=== PATIENT | female | born 1955 | race Caucasian/White ===

== ENCOUNTER 2024-10-23 07:00 | Outpatient (REF) | payer MEDICARE, MEDICAID, SELFPAY ==
--- NOTE | ~2024-10-23 | XR_ITS ---
EXAMINATION: XR KNEE 3 VIEWS RIGHT HISTORY: M25.561 - Pain in right knee COMPARISON: There are no prior studies available for comparison. FINDINGS: Three views of the right knee are submitted. Osseous mineralization is normal. There is no fracture or dislocation. There is mild narrowing of the medial compartment. The soft tissues are unremarkable. There is no significant joint effusion. XR/XR knee RT 3V IMPRESSION: Mild narrowing of the medial compartment. Electronically signed by: Tramaine Arredondo MD 10/24/2024 07:21 AM EDT
== END 2024-10-23 07:01 | disposition home or self-care (01) ==
LOC: HO.HOSX 07:00
PROVIDERS: Visit Provider Orthopaedic Surgery
DX: M25.561 Pain in right knee (principal); S83.241A Other tear of medial meniscus, current injury, right knee, initial encounter
CPT/HCPCS: 73562; 99212

== ENCOUNTER 2024-10-23 14:54 | Outpatient (AMB) | payer MEDICARE, MEDICAID, SELFPAY ==
--- NOTE | 2024-10-23 14:58 | A.OFFVIS_ITS ---
Vital Signs 10/23/24 15:09 Height 5 ft 3 in Weight 165 lb BMI 29.2 Intake Visit Reasons: Right knee pain and giving way Intake Note: Valencia is a 68 year old female who presents with complaints of progressively worsening right knee pain and giving way. The patient describes her pain as sharp in nature. She did twist her knee approximately 6 months ago. She had acute onset of pain. She has been seen by another orthopedic surgeon. Arthroscopic surgery was recommended. She presents here for a 2nd opinion. She has done physical therapy exercises which aggravated her pain. She states that her right knee will give out several times per day. She has failed the last 6 weeks of conservative treatment which has included a home exercise program, Tylenol and anti-inflammatory medicines. 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 Physical Exam Vital Signs: BMI result Body Mass Index 29.2 Const Other: Well-nourished well-developed very friendly female awake alert and oriented x3 in no acute distress Extrem Other: Bilateral lower extremity examination shows good capillary refill, no skin lesions noted, normal sensation light touch Right knee examination shows a minimal effusion, mild crepitus with range of motion, tenderness along her medial joint line, positive Néstor's test, no instability Results Reviewed Results Reviewed: Standing full weight-bearing x-rays of the patient's right knee show mild diffuse joint space narrowing, no acute bony abnormalities MRI of the patient's right knee from [facility] shows mild diffuse degenerative changes as well as a tear of the medial meniscus Assessment & Plan Assessment & Plan (1) Tear of medial meniscus of right knee: Code(s): S83.241A - Other tear of medial meniscus, current injury, right knee, initial encounter Category: Medical Plan Mrs. Narayan presents with progressively worsening right knee pain and mechanical symptoms due to a medial meniscus tear. I had a lengthy discussion with the patient regarding the treatment options. At this point she has failed continued non operative treatments. The risks and benefits of right knee arthroscopic surgery were discussed at length with the patient. The patient wishes to proceed with surgery. Surgery will most likely involve right knee arthroscopic partial medial meniscectomy. The patient does understand that she may not get 100% relief of her symptoms depending on the severity of her degenerative changes. She will be scheduled for next available date. She will follow-up as instructed. Feel free to call me at any time should questions regarding her orthopedic management arise. I spent 22 minutes in reviewing the patient's records and imaging studies, seeing the patient and documenting in the medical record. Orders: Orders XR knee RT 3V 10/23/24 M25.561 - Pain in right knee Medications: New amoxicillin Take four caps (2,000 mg) one hour before any dental work 2,000 mg (4 x 500 mg) PO ONCE 20 caps 2RF Coding Level of Care Code Est Pt Level 3 (95268) Complex EM visit Add On G2211 Diagnoses Tear of medial meniscus of right knee S83.241A
[2024-10-23 15:09] VITALS: BMI 29.2
== END 2024-10-23 15:42 | disposition home or self-care (01) ==
LOC: HO.HOS 14:54
PROVIDERS: PCP Internal Medicine; Visit Provider Orthopaedic Surgery
DX: S83.241A Other tear of medial meniscus, current injury, right knee, initial encounter (principal)
CPT/HCPCS: 99213; G2211

== ENCOUNTER → 2024-10-23 14:58 | Outpatient (BNV) | payer MEDICARE, MEDICAID, SELFPAY | PROVIDERS: Visit Provider Radiology Diagnostic Radiology | DX: M25.561 Pain in right knee (principal) | CPT/HCPCS: 73562 ==

== ENCOUNTER 2024-12-02 05:56 | Day surgery (SDC) | payer MEDICARE, MEDICAID, SELFPAY ==
--- OUTSIDE RECORDS SUMMARY | 2024-11-06 15:16 | XMS_ITS | Clinical Summary ---
Author Organization [facility] Address [address] [place] [address] Phone Care Team Providers Care Master Data Analyst Name Role Phone Betsy Clarke NP Primary Care Provider Allergies Active Allergy Reactions Criticality Noted Date Comments Duloxetine Hcl Nausea And Vomiting 12/07/2017 Levofloxacin Nausea And Vomiting 11/19/2009 Lisinopril 10/10/2019 Meperidine Hives 11/19/2009 Tetracycline 12/07/2017 Medications hydroCHLOROthiaz racquel (HYDRODIURIL) 25 mg tablet Take 1 tablet (25 mg total) by mouth. Active oxyCODONE-acetam inophen (PERCOCET) 5-325 mg per tablet Take 1 tablet by mouth 1 (one) time each day if needed. 12/04/2017 Active rosuvastatin (CRESTOR) 10 mg tablet Take 1 tablet (10 mg total) by mouth 1 (one) time each day. Active losartan (COZAAR) 25 mg tablet Take 1 tablet (25 mg total) by mouth 1 (one) time each day. Active dulaglutide (Trulicity) 1.5 mg/0.5 mL pen injector injection Inject 0.5 mL (1.5 mg total) under the skin every 7 (seven) days. Active magnesium oxide 500 mg magnesium tablet Take by mouth. Active cyanocobalamin (VITAMIN B-12) 1,000 mcg tablet Take 1 tablet (1,000 mcg total) by mouth 1 (one) time each day. Active tiZANidine (ZANAFLEX) 4 mg tablet Take by mouth at bedtime. Active gabapentin (NEURONTIN) 600 mg tablet Take 1 tablet (600 mg total) by mouth 3 (three) times a day. Active Surgical History Surgery Date Site/Laterality Comments GASTRIC BYPASS 2004 PROCEDURE: WI GASTRIC RSTCV W/BYP W/SM INT RCNSTJ LIMIT ABSRPJ HYSTERECTOMY 1979 PROCEDURE: HISTORICAL HYSTERECTOMY BACK SURGERY 2001 PROCEDURE: HISTORICAL BACK SURGERY; COMMENT: SPINAL FUSION CHOLECYSTECTOMY PROCEDURE: WI CHOLECYSTECTOMY JOINT REPLACEMENT Bilateral hip CERVICAL FUSION Medical History Medical History Date Comments HTN (hypertension) Diabetes (CMS/HCC) High cholesterol Family History Medical History Relation Name Comments Asthma Brother Liver disease Brother Lung disease Brother Other cancer Brother Pneumonia Brother Heart attack Father Lung disease Father Stroke Father Coronary artery disease Mother Hypertension Mother Relation Name Status Comments Brother Father Mother Social History Tobacco Use Types Packs/Day Years Used Date Smoking Tobacco: Former Cigarettes Tobacco Cessation:Counseling Given: Not Answered Alcohol Use Standard Drinks/Week Comments Never 0 (1 standard drink = 0.6 oz pur e alcohol) Comments No Sex and Gender Information Value Date Recorded Sex Assigned at Not on file Legal Sex Female 5:31 PM EST Gender Identity Not on file Sexual Orientation Not on file Obstetrics History Last Filed Vital Signs Vital Sign Reading Time Taken Comments Blood Pressure 161/66 06/03/2024 8:54 AM EST Pulse 57 06/03/2024 8:54 AM EST Temperature 36.1 ??C (96.9 ??F) 06/03/2024 8:34 AM ES T Respiratory Rate 19 06/03/2024 8:54 AM EST Oxygen Saturation 97% 06/03/2024 8:54 AM EST Inhaled Oxygen Concentration - - Weight 73.5 kg (162 lb) 06/03/2024 7:37 AM EST Height 160 cm (5' 3 ) 06/03/2024 7:37 AM EST Body Mass Index 28.7 06/03/2024 7:37 AM EST Plan of Treatment Health Maintenance Due Date Last Done Comments Diabetes: Annual GFR (Glomerular Filtration Rate) 1954 Diabetes: Annual Foot Exam 1964 Diabetes: Annual Retina Eye Exam 1964 Zoster Vaccines (1 of 2) 2004 Cholesterol Screening (Lipid Panel) 07/02/2022 Depression Screening 07/02/2022 Hepatitis C Screening 07/02/2022 Medicare Annual Wellness Visit 07/02/2022 Osteoporosis Screening (Bone Density Screening) 07/02/2022 Social Influencers of Health Screening 07/02/2022 COVID-19 Vaccine (3 - season) 2024 10/22/2020, 10/01/2020 Influenza Vaccine (#1) 2024 2, 05/11/2021, 05/05/2020, Additional history exists Diabetes: Annual Urine Albumin-Creatinine Ratio (uACR) 06/03/2024 Diabetes: Blood Sugar Control Test (HGBA1C) 06/03/2024 Hypertension/CHF/CAD Annual BMP Blood Test 06/03/2024 Breast Cancer Screening 12/01/2024 12/02/19, 08/31/2021, 08/09/2018 Pneumococcal Vaccine: 50+ Years (3 of 3 - PCV20 or PCV21) 05/05/2025 05/05/2020, 04/12/2013 Falls Risk Assessment 06/03/2025 06/03/2024 RSV Immunization Adult Patients (1 - 1-dose 75+ series) 2029 DTaP,Tdap,and Td Vaccines (4 - Td or Tdap) 10/03/2033 10/04/2023, 12/09/2012, 04/26/2000 Colorectal Cancer Screening: Colonoscopy 06/03/2034 06/03/2024 HIB Vaccines Aged Out No longer eligi ble based on patient's age to complete this topic HPV Vaccines Aged Out No longer eligi ble based on patient's age to complete this topic Hepatitis A Vaccines Aged Out No long er eligible based on patient's age to complete this topic Hepatitis B Vaccines Aged Out No long er eligible based on patient's age to complete this topic IPV Vaccines Aged Out No longer eligi ble based on patient's age to complete this topic MMR Vaccines Aged Out No longer eligi ble based on patient's age to complete this topic Meningococcal ACWY Vaccine Aged Out N o longer eligible based on patient's age to complete this topic Meningococcal B Vaccine Aged Out No l onger eligible based on patient's age to complete this topic RSV Immunization Patients Under 20 months Aged Out No longer eligible based on patient's age to complete this topic Varicella Vaccines Aged Out No longer eligible based on patient's age to complete this topic Medical Devices Implanted Type Area Deputy Administrator Device Identifier Shelf Expiration Date Model / Serial / Lot Joints Hip Joints Hip Bilatera l: Hip Description:Bilateral hip re placements Procedures Procedure Name Priority Date/Time Associated Diagnosis Comments COLONOSCOPY Routine 06/03/2024 8:33 AM EST Personal history of colon polyps, unspecified NORA SCREENING DIGITAL Routine 12/01/2022 11:31 AM EDT Encounter for screening mammogram for malignant neoplasm of breast from Last 3 Months or Most Recently Relevant to Health Maintenance Results * COLONOSCOPY Anesthesia - MAC; [facility] ENDOSCOPY (06/03/2024 8:33 AM EST) Anatomical Region Laterality Modality Endoscopy 06/03/2024 7:54 AM EST Narrative 06/03/2024 8:32 AM EST [facility] GI Patient Name: Valencia Mart ?Procedure Date: 06/03/2024 7:54 AM ? Date of : 1955 ?Age: 68 Room: ROOM 17 ? Gender: Female Note Status: Finalized ?Attending MD: Hayes Fernandez MD, Procedure Date No Time: 06/03/2024 ? Procedure: ? Colonoscopy Indications: ? High risk colon cancer surveillance: Personal history ? of colonic polyps Providers: ? Hayes Fernandez MD Referring MD: ?Hayes Fernandez MD Medicines: ? Monitored Anesthesia Care Complications: ? No immediate complications. Estimated Blood Loss: ? Estimated blood loss: none. Procedure: ? Pre-Anesthesia Assessment: ? - ASA Grade Assessment: II - A patient with mild ? systemic disease. ? - After reviewing the risks and benefits, the patient ? was deemed in satisfactory condition to undergo the ? procedure. ? After I obtained informed consent, the scope was ? passed under direct vision. Throughout the procedure, ? the patient's blood pressure, pulse, and oxygen ? saturations were monitored continuously.The Olympus ? Pediatric Colonoscope was introduced through the anus ? and advanced to the cecum, identified by appendiceal ? orifice and ileocecal valve. The colonoscopy was ? performed without difficulty. The patient tolerated ? the procedure well. The quality of the bowel ? preparation was good. Findings: ?A 9 mm polyp was found at 50 cm proximal to the anus. ? The polyp was sessile. The polyp was removed with a ? hot snare. Resection and retrieval were complete. ? Estimated blood loss was minimal. ? Multiple small-mouthed diverticula were found in the ? sigmoid colon. ? Non-bleeding internal hemorrhoids were found during ? retroflexion. The hemorrhoids were small. ? The exam was otherwise without abnormality on direct ? and retroflexion views. Impression: ?- One 9 mm polyp at 50 cm proximal to the anus, ? removed with a hot snare. Resected and retrieved. ? - Diverticulosis in the sigmoid colon. ? - Non-bleeding internal hemorrhoids. ? - The examination was otherwise normal on direct and ? retroflexion views. Recommendation: ?- Perform an upper GI endoscopy today. ? - Await pathology results. ? - Repeat colonoscopy for surveillance based on ? pathology results. Hayes Fernandez MD Hayes Fernandez MD 06/03/2024 8:32:25 AM This report has been signed electronically.Hayes Fernandez MD Number of Addenda: 0 Note Initiated On: 06/03/2024 7:54 AM Scope In: Scope Out: ? Endoscopy Department at [facility] - [address] [place] [address], ? [place] [id number] Procedure Note Hayes Fernandez MD - 06/03/2024 [facility] GI Patient Name: Valencia Mart Procedure Date: 06/03/2024 7:54 AM Date of : 1955 Age: 68 Room: ROOM 17 Gender: Female Note Status: Finalized Attending MD: Hayes Fernandez MD, Procedure Date No Time: 06/03/2024 Procedure: Colonoscopy Indications: High risk colon cancer surveillance: Personalhistory of colonic polyps Providers: Hayes Fernandez MD Referring MD: Hayes Fernandez MD Medicines: Monitored Anesthesia Care Complications: No immediate complications. Estimated Blood Loss: Estimated blood loss: none. Procedure: Pre-Anesthesia Assessment: - ASA Grade Assessment: II - A patient with mild systemic disease. - After reviewing the risks and benefits, thepatient was deemed in satisfactory condition to undergo the procedure. After I obtained informed consent, the scope was passed under direct vision. Throughout theprocedure, the patient's blood pressure, pulse, and oxygen saturations were monitored continuously.The Olympus Pediatric Colonoscope was introduced through theanus and advanced to the cecum, identified byappendiceal orifice and ileocecal valve. The colonoscopy was performed without difficulty. The patient tolerated the procedure well. The quality of the bowel preparation was good. Findings: A 9 mm polyp was found at 50 cm proximal to theanus. The polyp was sessile. The polyp was removed with a hot snare. Resection and retrieval were complete. Estimated blood loss was minimal. Multiple small-mouthed diverticula were found inthe sigmoid colon. Non-bleeding internal hemorrhoids were found during retroflexion. The hemorrhoids were small. The exam was otherwise without abnormality ondirect and retroflexion views. Impression: - One 9 mm polyp at 50 cm proximal to the anus, removed with a hot snare. Resected and retrieved. - Diverticulosis in the sigmoid colon. - Non-bleeding internal hemorrhoids. - The examination was otherwise normal on directand retroflexion views. Recommendation: - Perform an upper GI endoscopy today. - Await pathology results. - Repeat colonoscopy for surveillance based on pathology results. Hayes Fernandez MD Hayes Fernandez MD 06/03/2024 8:32:25 AM This report has been signed electronically.Hayes Fernandez MD Number of Addenda: 0 Note Initiated On: 06/03/2024 7:54 AM Scope In: Scope Out: Endoscopy Department at [facility] - [address] [place] [id number] us Hayes Fernandez MD GI~PROCEDURE ORDERABLES Final Result * NORA SCREENING DIGITAL (12/01/2022 11:31 AM EDT) Anatomical Region Laterality Modality Mammography 12/01/2022 8:54 AM EDT Narrative 12/01/2022 11:31 AM EDT [facility] Diagnostic Imaging Department [address] [place] [address] [id number] Patient: ??DYLANDOMONIQUEVALENCIA Nabil ?/Age/Sex: 1955 - 66 - F Unit#: ??[id number] ? Location/Status: ??SPDIMAM/REG CLI ? Mnemonic/Ordering Site: ??DIGSC/SPMAM Ordering Physician: ??ERICA LAGOS MD Nora Screening Digital - 12/01/22920 EXAM: Nora Screening Digital EXAM DATE AND TIME: 12/01/2022 9:21 AM HISTORY: ??Screening. Personal history of colon carcinoma. Reduction mammoplasty in 1998. COMPARISON: ??08/31/21, 03/18/19, 08/09/18, 05/08/17, 04/20/15 TECHNIQUE: CC and MLO views of both breasts were obtained using full field digital mammography. Bilateral digital breast tomosynthesis was performed in the MLO projection. Computer aided detection with vufind 7.2-H and Hydrobee 3D 3.1 was employed. TISSUE DENSITY: b. There are scattered areas of fibroglandular density. FINDINGS: Reduction mammoplasty sequelae are again noted. No suspicious masses, grouped microcalcifications, or areas of architectural distortion are seen. Benign- appearing microcalcifications are again seen bilaterally, unchanged. Vascular calcification is present. The skin is unremarkable. IMPRESSION: Stable mammographic appearance of the breasts. ??No evidence of malignancy is seen. A negative mammogram in the presence of a clinically suspicious palpable abnormality does not preclude the possibility of malignancy or alter the indications for biopsy. BI-RADS: ??Category 2: Benign RECOMMENDATION(S): 1: Routine screening mammogram BILATERAL in 1 year. [address]164, 47593 3342F, 7025F Dictating Physician: ??MANISHA WALLIS MD Electronically Signed by: ??MANISHA WALLIS MD Dic Date/Time: ??12/01/22 1129 Sign date/Time: ??12/01/22 1131 Procedure Note Manisha Wallis MD - 09/01/2023 [facility] Diagnostic Imaging Department [address] [place] [id number] Patient: VALENCIA MART D.O.B./Age/Sex: 1955 - 66 - F Unit#: [id number] Location/Status: SPDIMAM/REG CLI Mnemonic/Ordering Site: DIGCT/[facility] Ordering Physician: ERICA LAGOS MD [facility] Screening Digital - 12/01/22 - 920 EXAM: Nora Screening Digital EXAM DATE AND TIME: 12/01/2022 9:21 AM HISTORY: Screening. Personal history of colon carcinoma. Reductionmammoplasty in 1998. COMPARISON: 08/31/21, 03/18/19, 08/09/18, 05/08/17, 04/20/15 TECHNIQUE: CC and MLO views of both breasts were obtained using fullfield digital mammography. Bilateral digital breast tomosynthesis was performedin the MLO projection. Computer aided detection with vufind 7.2-H andHydrobee 3D 3.1 was employed. TISSUE DENSITY: b. There are scattered areas of fibroglandular density. FINDINGS: Reduction mammoplasty sequelae are again noted. No suspicious masses,grouped microcalcifications, or areas of architectural distortion are seen.Benign- appearing microcalcifications are again seen bilaterally, unchanged. Vascular calcification is present. The skin is unremarkable. IMPRESSION: Stable mammographic appearance of the breasts. No evidence of malignancyis seen. A negative mammogram in the presence of a clinically suspicious palpable abnormality does not preclude the possibility of malignancy or alter the indications for biopsy. BI-RADS: Category 2: Benign RECOMMENDATION(S): 1: Routine screening mammogram BILATERAL in 1 year. 59991, 06758 3342F, 7025F Dictating Physician: MANISHA WALLIS MD Electronically Signed by: MANISHA WALLIS MD Dic Date/Time: 12/01/22 1129 Sign date/Time: 12/01/22 1131 us Erica Lagos MD IMG BI PROCEDURES Final Result from Last 3 Months or Most Recently Relevant to Health Maintenance Insurance MEDICARE [place]ICAID - [place] Advance Directives Documents on File Type Date Recorded Patient Dog Catcher Expl anation Health Care Decision (hx) 04/09/2013 AD BALLARD DIRECTIVE Health Care Decision (hx) 04/09/2013 AD BALLARD DIRECTIVE Health Care Decision (hx) 04/09/2013 AD BALLARD DIRECTIVE Health Care Decision (hx) 04/09/2013 AD BALLARD DIRECTIVE Health Care Decision (hx) 04/09/2013 AD BALLARD DIRECTIVE Health Care Decision (hx) 04/09/2013 AD BALLARD DIRECTIVE Health Care Decision (hx) 04/09/2013 AD BALLARD DIRECTIVE Health Care Decision (hx) 04/09/2013 AD BALLARD DIRECTIVE Health Care Decision (hx) 04/09/2013 AD BALLARD DIRECTIVE Health Care Decision (hx) 04/09/2013 AD BALLARD DIRECTIVE Care Teams Master Data Analyst Relationship Specialty Start Date End Date Betsy Clarke NP [address] [place] [address] PCP - General Internal Medicine 05/30/22
--- OUTSIDE RECORDS SUMMARY | 2024-11-06 15:17 | XMS_ITS | Clinical Summary ---
Author Organization [facility] Address [address] [place] [address] Care Team Providers Care Line Pilot Name Role Phone Betsy Clarke NP Primary Care Provider [phone] Allergies Active Allergy Reactions Criticality Noted Date Comments Duloxetine Hcl 12/07/2017 Meperidine 12/07/2017 Lisinopril 10/10/2019 Tetracycline 12/07/2017 Medications Medication Sig Dispensed Refills Start Date End Date Status fluticasone (FLONASE) 50 MCG/ACT nasal spray 0 11/24/2017 Activ e oxyCODONE-acetamino phen (PERCOCET) 5-325 MG per tablet Take 1 tablet by mouth daily as needed. for pain 0 12/04/2017 Active tiZANidine (ZANAFLEX) 4 MG tablet Take 4 mg by mouth daily. 0 Active amLODIPine (NORVASC) tablet 2.5 mg Take 2.5 mg by mouth daily. 0 Active hydroCHLOROthiazide (HYDRODIURIL) tablet 25 mg Take 25 mg by mouth daily. 0 Active Multiple Vitamins-Minerals (MULTIVITAMIN GUMMIES ADULT PO) Take by mouth daily. 0 Active B Complex Vitamins (VITAMIN B COMPLEX PO) Take by mouth daily. 0 Active Magnesium Oxide 400 (241.3 Mg) MG TABS tablet Take 400 mg by mouth daily. 0 Active Cholecalciferol (VITAMIN D3) 50 MCG (2000 UT) capsule Take 2,000 Units by mouth daily. 0 Active gabapentin (NEURONTIN) 300 MG capsule Take 300 mg by mouth 3 (three) times a day. 0 Active amoxicillin (AMOXIL) 500 MG tablet Take 4 tabs 1 hour prior to dental appointment, colonoscopy or surgical procedure 20 tablet 3 11/12/2021 Active Active Problems No known active problems Family History Medical History Relation Name Comments Cancer Brother Heart disease Father Diabetes Mother Heart disease Mother Hypertension Mother Relation Name Status Comments Brother Father Mother Social History Tobacco Use Types Packs/Day Years Used Date Smoking Tobacco: Never Assessed Sex and Gender Information Value Date Recorded Sex Assigned at Not on file Gender Identity Not on file Sexual Orientation Not on file Job Start Date Occupation Industry Not on file Not on file Not on file Last Filed Vital Signs Vital Sign Reading Time Taken Comments Blood Pressure 131/73 06/03/2020 2:04 PM EST Pulse 64 06/03/2020 2:04 PM EST Temperature 36.4 ??C (97.5 ??F) 06/03/2020 2:04 PM ES T Respiratory Rate - - Oxygen Saturation - - Inhaled Oxygen Concentration - - Weight 81.8 kg (180 lb 6.4 oz) 06/03/2020 2:04 P M EST Height 160 cm (5' 3 ) 06/03/2020 2:04 PM EST Body Mass Index 31.96 06/03/2020 2:04 PM EST Plan of Treatment Health Maintenance Due Date Last Done Comments Hepatitis C Screening 1955 COVID-19 Vaccine (#1) [birth year]17[birth year]1955 Depression Screening 1966 BMI Counseling 1972 Preventative Health Evaluation 1972 DTap / Tdap / Td (1 - Tdap) 1973 Colon Cancer Screening (Colonoscopy) 12/16/1999 Breast Cancer Screening (Mammogram) 2004 Shingrix-Zoster Vaccine (1 of 2) 2004 Fall Risk Assessment 12/16/2019 Osteoporosis Screening (DEXA Scan) 12/16/2019 Pneumococcal Vaccine (1 of 1 - PCV) 12/16/2019 Influenza Vaccine (#1) 2024 RSV Adult > 60+ Yrs or Pregn ant (1 - 1-dose 75+ series) 2029 Hepatitis B Vaccines Aged Out No long er eligible based on patient's age to complete this topic RSV Ped < 20 months Aged Out No longe r eligible based on patient's age to complete this topic Care Teams Line Pilot Relationship Specialty Start Date End Date Betsy Clarke NP [address] [place] [address] PCP - General Gerontology 10/10/19
[2024-11-27 12:18] VITALS: BMI 29.2
--- NOTE | 2024-11-28 12:46 | HO.ANESPROP2 ---
Documented by User: Becca Leal NP 11/28/24 12:47 HPI - Anesthesia Eval Consult details Narrative: 68yo F for Right Knee Arthroscopy partial medial meniscectomy Anesthesia Pre-Procedure Meds Is the patient on any of the following meds?: GLP1/DPP4 PMFSH Active Problems Active Problems: All Active Problems Tear of medial meniscus of right knee (Acute) Right knee pain (Acute) Past Medical History Medical History (Updated 12/02/24 @ 06:45 by Eve Pope RN) Diabetes GERD (gastroesophageal reflux disease) Adnexal mass Aortic valve calcification Arthralgia Chronic cervical radiculopathy Migraine Cough Depression Diverticulitis Fibromyalgia Hiatal hernia Hypercholesteremia HTN (hypertension) Anemia Back pain Osteoarthritis Surgical History Surgical History (Updated 12/02/24 @ 06:13 by Eve Pope RN) Hx of laminectomy Hx of fusion of cervical spine Hx of hysterectomy Hx of breast reduction, elective Hx of bariatric surgery Hx of total hip arthroplasty History of esophagogastroduodenoscopy (EGD) H/O colonoscopy Social History Social History Alcohol intake: current Alcohol intake frequency: holidays/special occasions only Patient Tobacco Use Status: Former Tobacco user Use of substances other than those prescribed or required for medical reasons: No Are you DNR?: No Advance Directives: No Advance Directives Information Provided: Yes Current occupational status: employed 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 Meds Allergies Allergy/AdvReac Type Severity Reaction Status Date / Time meperidine [From DEMEROL] Allergy Unknown HIVES Verified 12/02/24 06:13 tetracycline [TETRACYCLINE] Allergy Unknown GASTRITIS Verified 12/02/24 06:13 duloxetine [From Cymbalta] Allergy Unknown Verified 12/02/24 06:13 irbesartan Allergy Headache Verified 12/02/24 06:13 levofloxacin [From Levaquin] Allergy Unknown Verified 12/02/24 06:13 lisinopril Allergy Cough Verified 12/02/24 06:13 Tetracyclines Allergy Unknown Verified 12/02/24 06:13 Active Medications: Current Medications Cefazolin Sodium/Dextrose (Ancef) 2 gm in 50 mls @ 100 mls/hr IV PREOP ONE Stop: 12/02/24 06:02 Home Medications ?Medication ?Instructions ?Recorded ?Confirmed ?Last Taken ?Type amitriptyline 10 mg tablet 10 - 20 mg PO BEDTIME 11/27/24 12/02/24 Unknown History cholecalciferol (vitamin D3) 25 50 mcg PO DAILY 11/27/24 12/02/24 Unknown History mcg (1,000 unit) capsule (Vitamin D3) cyanocobalamin (vitamin B-12) 50 50 mcg PO DAILY 11/27/24 12/02/24 Unknown History mcg tablet (Vitamin B-12) dulaglutide 0.75 mg/0.5 mL 0.75 mg subcut QWEEK 11/27/24 12/02/24 11/16/24 History subcutaneous pen injector (Trulicity) gabapentin 300 mg capsule 300 mg PO TID 11/27/24 12/02/24 12/02/24 05:00 History hydrochlorothiazide 25 mg tablet 25 mg PO DAILY 11/27/24 12/02/24 Unknown History ipratropium bromide 17 2 puff inhalation QID 11/27/24 12/02/24 Unknown History mcg/actuation HFA aerosol inhaler (Atrovent HFA) losartan 25 mg tablet 25 mg PO DAILY 11/27/24 12/02/24 Unknown History magnesium 200 mg tablet 400 mg PO DAILY 11/27/24 12/02/24 Unknown History multivitamin 1 tab PO DAILY 11/27/24 12/02/24 Unknown History oxycodone 5 mg tablet 5 mg PO QID PRN Pain 11/27/24 12/02/24 12/02/24 05:00 History rosuvastatin 10 mg tablet 10 mg PO DAILY 11/27/24 12/02/24 Unknown History tizanidine 4 mg capsule 8 mg PO BEDTIME PRN Muscle Spasm 11/27/24 12/02/24 Unknown History fluticasone propionate 50 1 spray intranasal DAILY 12/02/24 12/02/24 Unknown History mcg/actuation nasal spray,suspension Exam Height,Weight and Vital Signs: Height 5 ft 3 in Weight 74.843 kg Assessment and Plan Assessment Anesthesia Assessment: Chart Reviewed Documented by User: Sakina Murguia MD 12/02/24 08:00 [facility] Past Medical History Medical History (Updated 12/02/24 @ 06:45 by Eve Pope, RN) Diabetes GERD (gastroesophageal reflux disease) Adnexal mass Aortic valve calcification Arthralgia Chronic cervical radiculopathy Migraine Cough Depression Diverticulitis Fibromyalgia Hiatal hernia Hypercholesteremia HTN (hypertension) Anemia Back pain Osteoarthritis Family History Family history of problems with anesthesia: No Surgical History Surgical History (Updated 12/02/24 @ 06:13 by Eve Pope, RN) Hx of laminectomy Hx of fusion of cervical spine Hx of hysterectomy Hx of breast reduction, elective Hx of bariatric surgery Hx of total hip arthroplasty History of esophagogastroduodenoscopy (EGD) H/O colonoscopy History of Problems with Anesthesia: No Social History Social History Alcohol intake: current Alcohol intake frequency: holidays/special occasions only Patient Tobacco Use Status: Former Tobacco user Use of substances other than those prescribed or required for medical reasons: No Are you DNR?: No Advance Directives: No Advance Directives Information Provided: Yes Current occupational status: employed 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 Meds Allergies Allergy/AdvReac Type Severity Reaction Status Date / Time meperidine [From DEMEROL] Allergy Unknown HIVES Verified 12/02/24 06:13 tetracycline [TETRACYCLINE] Allergy Unknown GASTRITIS Verified 12/02/24 06:13 duloxetine [From Cymbalta] Allergy Unknown Verified 12/02/24 06:13 irbesartan Allergy Headache Verified 12/02/24 06:13 levofloxacin [From Levaquin] Allergy Unknown Verified 12/02/24 06:13 lisinopril Allergy Cough Verified 12/02/24 06:13 Tetracyclines Allergy Unknown Verified 12/02/24 06:13 Home Medications ?Medication ?Instructions ?Recorded ?Confirmed ?Last Taken ?Type amitriptyline 10 mg tablet 10 - 20 mg PO BEDTIME 11/27/24 12/02/24 Unknown History cholecalciferol (vitamin D3) 25 50 mcg PO DAILY 11/27/24 12/02/24 Unknown History mcg (1,000 unit) capsule (Vitamin D3) cyanocobalamin (vitamin B-12) 50 50 mcg PO DAILY 11/27/24 12/02/24 Unknown History mcg tablet (Vitamin B-12) dulaglutide 0.75 mg/0.5 mL 0.75 mg subcut QWEEK 11/27/24 12/02/24 11/16/24 History subcutaneous pen injector (Trulicity) gabapentin 300 mg capsule 300 mg PO TID 11/27/24 12/02/24 12/02/24 05:00 History hydrochlorothiazide 25 mg tablet 25 mg PO DAILY 11/27/24 12/02/24 Unknown History ipratropium bromide 17 2 puff inhalation QID 11/27/24 12/02/24 Unknown History mcg/actuation HFA aerosol inhaler (Atrovent HFA) losartan 25 mg tablet 25 mg PO DAILY 11/27/24 12/02/24 Unknown History magnesium 200 mg tablet 400 mg PO DAILY 11/27/24 12/02/24 Unknown History multivitamin 1 tab PO DAILY 11/27/24 12/02/24 Unknown History oxycodone 5 mg tablet 5 mg PO QID PRN Pain 11/27/24 12/02/24 12/02/24 05:00 History rosuvastatin 10 mg tablet 10 mg PO DAILY 11/27/24 12/02/24 Unknown History tizanidine 4 mg capsule 8 mg PO BEDTIME PRN Muscle Spasm 11/27/24 12/02/24 Unknown History fluticasone propionate 50 1 spray intranasal DAILY 12/02/24 12/02/24 Unknown History mcg/actuation nasal spray,suspension Exam Airway Mallampati Class: II TM Dist: >3cm Neck ROM: Full Loose/Missing/Broken Teeth: Yes and Upper Assessment and Plan Assessment Anesthesia Assessment: Anesthesia Plan Discussed Final Anesthetic Review Family History of Problems with Anesthesia: No History of Problems with Anesthesia: No NPO: Yes ASA Class: II Final Preanesthetic Review: No Changes in Pt Med Stat, Meds/Allgs Chart Reviewed, Consent Obtained/Reviewed and Anes Risks/Benef Reviewed Patient Risk: Intermediate Procedure Risk: Low Anesthetic Plan Anesthetic Plan: GA Disposition: Standard PACU
[2024-12-02] VITALS (10 sets, daily range): BP systolic 134–171; BP diastolic 62–75; PULSE 60–79; RESP 14–16; TEMP 36.2–36.6; O2SAT 93–100; BMI 29.1
[2024-12-02] MEDS: Lactated Ringers 1,000 ML 100 ML IVCONT (06:41)
[2024-12-02 06:50] LABS: Glucose, Whole Blood 140 mg/dL (60-115)
[2024-12-02] MEDS: ceFAZolin Sodium/Dextrose,Iso 2 GM/50 ML PIGGYBACK IV (08:40)
[2024-12-02] MEDS: Acetaminophen 1,000 MG/100 ML PIGGYBACK 400 MG IV (08:50)
--- NOTE | 2024-12-02 09:34 | PM.OP ---
Brief Operative Note Date of Service: 12/02/24 Pre-op diagnosis: Right knee medial meniscus tear, right knee degenerative joint disease Post-op diagnosis: same Procedure: Right knee arthroscopic partial medial meniscectomy, right knee arthroscopic chondroplasty of the undersurface of the patella as well as the medial femoral condyle Implants: none Surgeon: Jerry Wiggins MD Anesthesia: GLMA Was an Demolition Expert used for this Procedure?: No Estimated blood loss (mL): 10 Pathology: none sent Condition: stable Disposition: PACU
--- NOTE | 2024-12-02 09:35 | P.OP_ITS ---
Operative Note Operative Note Date of Service: 12/02/24 Narrative: After the patient was identified as Valencia Narayan and her right knee was initialed by myself they were brought to the operating room where general anesthesia was induced by the anesthesiologist in routine fashion. The patient was given 2 g of IV Ancef for infection prophylaxis. A formal time-out was completed. The patient's right lower extremity was prepped and draped in sterile fashion. Marcaine with epinephrine was injected into the planned incision sites as well as their right knee joint. A # 11 scalpel blade was used to make an anterolateral portal 1 cm proximal to the joint line and 1 cm lateral to the patellar tendon. Blunt trocar technique was used into the suprapatellar pouch with the knee in extension. Diagnostic arthroscopy showed multiple bands of thickened plica which would be excised at the end of the procedure. There were no loose bodies or abnormalities found in either the medial or lateral gutters. There were diffuse grades 1 and 2 degenerative changes of the undersurface of the patella as well as grade 1 degenerative changes of the trochlear groove. The patient's knee was flexed to 45 degrees and a valgus force was placed upon it. The medial compartment was entered. An anteromedial portal was made 1 cm proximal to the joint line and 1 cm medial to the patellar tendon. Probing of the medial meniscus showed a radial tear of the posterior horn. A partial medial meniscectomy was performed using the arthroscopic shaver. Following the partial meniscectomy the remainder of the meniscus tissue was stable. There were diffuse grades 1 and 2 degenerative changes of the med ial femoral condyle as well as diffuse grade 1 degenerative changes of the medial tibial plateau. The articular surface of the medial femoral condyle was made smooth using the arthroscopic shaver. The articular surface of the medial tibial plateau was already smooth so no chondroplasty was indicated. The patient's knee was then placed into a neutral position. There was no injury to the anterior cruciate ligament. The patient's knee was then placed into the figure of 4 position and the lateral compartment was entered. There were minimal degenerative changes of the lateral femoral condyle and lateral tibial plateau. There was no evidence of lateral meniscus tearing. The patient's knee was once again brought into extension and the suprapatellar pouch was entered. The arthroscopic shaver and the ArthroCare Wand were used to excise the thickened bands of plica. The undersurface of the patella was then made smooth using the arthroscopic shaver. The articular surface of the trochlear groove was already smooth so no chondroplasty was indicated. The knee joint was irrigated and then drained. All arthroscopic instruments were removed. The 2 portals were closed with 3-0 nylon interrupted suture. The knee joint was injected with Marcaine. Dry sterile dressing and Fernando bandages were placed over the patient's knee. The patient was awoken and extubated in the operating room. They were transferred to the recovery room in stable condition.
[2024-12-02] MEDS: Ketorolac Tromethamine 15 MG/ML VIAL IVPUSH (09:42)
[2024-12-02] MEDS: fentaNYL citrate/PF 100 MCG/2 ML VIAL 50 MCG IVPUSH ×2 (09:44→09:54)
[2024-12-02] MEDS: cefTRIAXone sodium 1 GM VIAL IVPUSH (09:45)
[2024-12-02] MEDS: oxyCODONE HCl Immed Release 5 MG TABLET PO (10:10)
== END 2024-12-02 10:53 | disposition home or self-care (01) ==
PROVIDERS: PCP Family Medicine; Visit Provider Orthopaedic Surgery
PROC: (CPT 29870; principal; 2024-12-02 08:30)
DX: S83.241A Other tear of medial meniscus, current injury, right knee, initial encounter (principal); M17.11 Unilateral primary osteoarthritis, right knee; M67.51 Plica syndrome, right knee; M25.561 Pain in right knee; M23.51 Chronic instability of knee, right knee; X50.1XXA Overexertion from prolonged static or awkward postures, initial encounter; Y93.9 Activity, unspecified; Y92.9 Unspecified place or not applicable; Y99.9 Unspecified external cause status; K21.9 Gastro-esophageal reflux disease without esophagitis; D64.9 Anemia, unspecified; E78.00 Pure hypercholesterolemia, unspecified; E11.9 Type 2 diabetes mellitus without complications; M79.7 Fibromyalgia; Z79.51 Long term (current) use of inhaled steroids; Z79.899 Other long term (current) drug therapy; Z79.85 Long-term (current) use of injectable non-insulin antidiabetic drugs; Z88.1 Allergy status to other antibiotic agents; Z88.5 Allergy status to narcotic agent; Z88.8 Allergy status to other drugs, medicaments and biological substances; Z98.890 Other specified postprocedural states; Z87.891 Personal history of nicotine dependence
CPT/HCPCS: 29881; 82947; J0131; J0171; J0690; J0696; J1100; J1885; J2003; J2250; J2405; J2704; J2795; J3010

== ENCOUNTER → 2024-12-02 05:56 | Outpatient (BNV) | payer MEDICARE, MEDICAID, SELFPAY | PROVIDERS: PCP Family Medicine; Visit Provider Orthopaedic Surgery | DX: S83.241A Other tear of medial meniscus, current injury, right knee, initial encounter (principal) | CPT/HCPCS: 29881 ==

== ENCOUNTER 2024-12-17 08:59 | Outpatient (AMB) | payer MEDICARE, MEDICAID, SELFPAY ==
--- NOTE | 2024-12-17 09:02 | A.OFFVIS_ITS ---
Vital Signs 12/17/24 09:03 Height 5 ft 3 in Weight 164 lb BMI 29.0 Intake Visit Reasons: PO RT knee 12/02/24 DR Intake Note: Valencia is a 68 year old female who presents today post-operatively after undergoing a right knee arthroscopy on 12/02/24. Patient reports she is doing great and feels much better than she did. Patient is very thankful she had the procedure done. Sutures removed in office and steri-strips applied. Allergies meperidine [From DEMEROL] Allergy (Unknown, Verified 12/17/24 09:10) HIVES tetracycline [TETRACYCLINE] Allergy (Unknown, Verified 12/17/24 09:10) GASTRITIS duloxetine [From Cymbalta] Allergy (Verified 12/17/24 09:10) Unknown irbesartan Allergy (Verified 12/17/24 09:10) Headache levofloxacin [From Levaquin] Allergy (Verified 12/17/24 09:10) Unknown lisinopril Allergy (Verified 12/17/24 09:10) Cough Tetracyclines Allergy (Verified 12/17/24 09:10) Unknown Medication List - Last Reconciled 12/17/24 by Jerry Wiggins MD amitriptyline 10 - 20 mg PO BEDTIME amoxicillin 2,000 mg (4 x 500 mg) PO ONCE cholecalciferol (vitamin D3) (Vitamin D3) 50 mcg PO DAILY cyanocobalamin (vitamin B-12) (Vitamin B-12) 50 mcg PO DAILY dulaglutide (Trulicity) 0.75 mg subcut QWEEK fluticasone propionate 50 mcg/actuation 1 spray intranasal DAILY gabapentin 300 mg PO TID hydrochlorothiazide 25 mg PO DAILY ipratropium bromide 17 mcg/actuation (Atrovent HFA) 2 puffs inhalation QID losartan 25 mg PO DAILY magnesium 400 mg PO DAILY multivitamin 1 tab PO DAILY oxycodone 5 mg PO QID PRN oxycodone 5 mg PO Q6H PRN rosuvastatin 10 mg PO DAILY tizanidine 8 mg PO BEDTIME PRN PFSH Medical History (Updated 12/02/24 @ 06:45 by Eve Pope RN) Diabetes GERD (gastroesophageal reflux disease) Adnexal mass Aortic valve calcification Arthralgia Chronic cervical radiculopathy Migraine Cough Depression Diverticulitis Fibromyalgia Hiatal hernia Hypercholesteremia HTN (hypertension) Anemia Back pain Osteoarthritis Surgical History (Updated 12/02/24 @ 06:13 by Eve Pope RN) Hx of laminectomy Hx of fusion of cervical spine Hx of hysterectomy Hx of breast reduction, elective Hx of bariatric surgery Hx of total hip arthroplasty History of esophagogastroduodenoscopy (EGD) H/O colonoscopy Social History Alcohol intake: current Alcohol intake frequency: holidays/special occasions only Patient Tobacco Use Status: Former Tobacco user Current occupational status: employed 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 Narayan is doing well after undergoing right knee arthroscopic surgery on 12/02/2024. She will gradually progress to activities as tolerated. She will contact me prior to her follow-up appointment in 3 months should any questions or concerns arise. Coding Level of Care Code Global (69743) Diagnoses Right knee pain M25.561
[2024-12-17 09:03] VITALS: BMI 29.0
--- OUTSIDE RECORDS SUMMARY | 2024-12-17 09:32 | XMS_ITS | Data Portability ---
Author Organization [facility], [facility] Address [address] [place] [address] Care Team Providers Care Guest Experience Manager Name Role Phone ISAIAS ERICA Primary Care Provider Assessment Encounter Date Assessment Date Assessment LastModified by Organization Details LastModified Time 09/26/2024 09/26/2024 I am seeing the patient today under the supervision of giovanny who was available but who did not see the patient. HPI: Patient presents today regarding their R knee sp fall. They have had difficulty up and down stairs sitting standing. Problems ambulating. Tqvj-par-vdaycji medications are helping somewhat but not significantly. Pain is constant aching sometimes sharp pain with giving out sensations. Past family, medical, social history and review of systems has been reviewed, updated and is located in the patient? s chart. Examination: The patient is well appearing and in no apparent distress. Alert and oriented x3. Gait is symmetric. Examination of the Rn knee reveals no evidence of any edema, erythema, or warmth.o] Deformity. Range of motion of the knee limited with mild discomfort at the end ranges. Mild effusion. Does have some tenderness to palpation about the medial hemijoint line. No tenderness to palpation about the lateral hemijoint line. Patellofemoral crepitus is noted. mild lateral ligamentous laxity. Negative Néstor? s . Calf is supple and nontender. Neurovascularly intact distally. 4 X-ray views of the knee were independently reviewed today showed narrowing of the medial compartment of the R knee. With slight osteophyte formation. Narrowing is noted of patellofemoral joint as well. No evidence of any other bony lesions or pathology. Impression: Right knee medial collateral ligament/meniscal injury Plan: We discussed the role of conservative management including medications, physical therapy, injection and bracing. At this point the patient was to proceed with hinged knee brace MRI for evaluation to prepare for surgical planning. Please see procedure note .Patient will continue conservative of systems icing and elevation and xlhs-poc-rqqmxmy medications. They will follow up with us as scheduled. [email or web address] Not available 09/26/2024 11:03:01 12/11/2024 12/11/2024 A/ L trigger thumb, initial diagnosis P/ Left thumb flexor tendon sheath cortisone injections performed. She knows that if this is recurrent after the first injection, second injection can be performed. If recurrent after 2 injections, surgical release would be recommended as has been required for treatment of other trigger fingers. She will follow-up for this problem on an as-needed basis. [email or web address] Not available 12/11/2024 12:20:25 Plan of Treatment Reminders Order Date Submit Date Provider Last Modified By Organization Details Last Modified Time Details Appointments None recorded. Lab None recorded. Referral None recorded. Procedures None recorded. Surgeries None recorded. Imaging XR, knee, 4 or more view - UC 1 right knee 4v 2024 025 [email or web address] [facility], [address], [place], [address], 5 14:07:11 MRI, knee, w/o contrast - mri right knee - eval ? MMI 2024 025 [facility] ([facility]), [address], [place], [address], 5 15:18:13 XR, elbow, 3 or more view - rm 120 3v elbow 2023 024 [email or web address] [facility], [address], [place], [address], 4 10:34:00 Medication Orders None recorded. Patient TargetsNo targets recorded. Patient InstructionsNo instructions recorded. Reason for Referral None Reported. Results Created Date Observation Date Name Description Value Unit Range Abnormal Flag Note LastModifiedBy Organization Detail LastModifiedTime 11/09/19 24 11/08/2023 rhyth m strip , EKG* No observ ation record ed. [email or web address] [facility] - [address], [place], [address], 11/10/2023 13:30:20 05/06/20 24 05/06/2024 XR, elbow , 3 or more view [email or web address] ?Encry pted=s hAaTro YD8dLq bEUv6g %2BXZw aYqtaq 0bqfl% 2Fg9IQ a4ajBk vP9nXo QUaueC m3YtLR FvZlJ JJ8mAn HZtai3 4j5579 AC0Kqa 36HVqq mKiQtr MwF INTERFACE [facility] [address], [place], [address], 05/06/2024 09:22:26 05/06/20 24 05/06/2024 XR, elbow , 3 or more view [email or web address] ?Encry pted=s hAaTro YD8dLq bEUv6g %2BXZw aYqtaq 0bqfl% 2Fg9IQ a4ajBk vP9nXo QUaueC m3YtLR FvZl JJ8mAn HZtai3 9i1045 AC0Kqa 36HVqq mKiQtr MwF INTERFACE [facility] [address] [facility] [address], [place], [address], 05/06/2024 09:22:29 09/26/19 25 09/26/2024 XR, knee, 4 or more view [email or web address] ?Encry pted=s hAaTro YD8dLq bEUv6g %2BXZw aYqtaq 0bqfl% 2Fg9IQ a4ajBk vP9nXo QUaueC m3YtLR FvZlgJ JJ8mAn HZtai3 2d8203 AC0Kqb XmMWae vKiQtr MwF INTERFACE [facility] [address], [place], [address], 09/26/2024 10:56:44 09/26/19 25 09/26/2024 XR, knee, 4 or more view [email or web address] ?Encry pted=s hAaTro YD8dLq bEUv6g %2BXZw aYqtaq 0bqfl% 2Fg9IQ a4ajBk vP9nXo QUaueC m3YtLR FvZlgJ JJ8mAn HZtai3 5w0100 AC0Kqb XmMWae vKiQtr MwF INTERFACE [facility] [address], [place], [address], 09/26/2024 10:56:47 10/03/19 25 10/01/2024 MRI, knee, w/o contr ast [facility] Access ion Number : [id number] Patien t Name: Valencia Comer Record Number : [id number] Date of : 1955 Date of Exam: 2024 Referr ing Physic carl: [facility] [address], [address] [facility], [facility] [address] Exam: MR Knee (C-) CPT 79941 - Right Room Descri ption: [facility] Pion 3T MRI right knee Histor y: Pain Findin gs: 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 Body of the medial menisc us is sublux ed slight ly into the medial gutter . Small margin al osteop hytes in the medial compar tment. Latera l menisc us is intact The ACL and PCL are intact The MCL is intact The LCL comple x includ ing the biceps femori s, poplit eus and fibula r collat eral ligame nts are intact The medial and latera l patell ar retina cula are intact . The extens or mechan ism is intact . Mitchell' s cyst measur es approx imatel y 2.5 cm AP by 5 cm cranio caudal . 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 Body of the medial menisc us is sublux ed slight ly into the medial gutter . Small margin al osteop hytes in the medial compar tment. Mitchell' s cyst. Electr onical ly Signed By: Myrna Clarke MD [email or web address] [facility] ([facility]) [address], [place], [address], 10/02/2024 16:37:14 Result Notes None recorded. Problems Name Problem SNOMED Code Status Onset Date Resolution Date Notes Provider Name and Address Organization Details Recorded Time No complaint s [id number] Active Status: 'I'; Not Available [facility] 4 09:20:23 Idiopathi c osteoarth ritis 977351545 Active 2017 Problem Code: M19.031; Problem Code Type: ICD-10; Status: 'A'; Not Available [facility] 4 11:42:29 Trigger finger of right hand 403759013410 74013 Active 2017 Problem Code: M65.331; Problem Code Type: ICD-10; Status: 'A'; Not Available [facility] 4 11:42:30 Bilateral carpal tunnel syndrome 183290899361 95510 Active 2016 Problem Code: G56.03; Problem Code Type: ICD-10; Status: 'A'; Not Available [facility] 4 11:42:30 Problem Notes None recorded. Procedures Surgical History Date Name Laterality Status Provider Name and Address Organization Details Recorded Time 12/12/19 25 Trigger Finger Kenalog Injection completed Shruti Huerta MD [address], [place], [address], [facility] 12/11/2024 11:30:10 05/06/20 24 Lateral Epicondylitis Celestone 1cc Injection, L/R completed Joie Lopez PA-C [address], [place], [address], [facility] 05/06/2024 10:07:11 05/06/20 24 Medial Epicondylitis Celestone 1cc Injection, L/R completed Joie Lopez PA-C [address] [facility], [place], [address], [place] - [facility] 05/06/2024 10:07:03 Imaging Results Imaging Date Name Status LastModified by Organiz ation Details LastModified Time 11/08/2023 rhythm strip, EKG* completed [email or web address] [facility] - [address], [address], 11/10/2023 13:30:20 05/06/2024 XR, elbow, 3 or more view completed [facility] [address], [place], [address], 05/06/2024 09:22:26 05/06/2024 XR, elbow, 3 or more view completed [facility] [address] [facility], [place], [address], 05/06/2024 09:22:29 09/26/2024 XR, knee, 4 or more view completed [facility] [address], [place], [address], 09/26/2024 10:56:44 09/26/2024 XR, knee, 4 or more view completed INTER[facility] [address] [facility], [place], [address], 09/26/2024 10:56:47 10/01/2024 MRI, knee, w/o contrast completed [email or web address] [facility] ([facility]) [address], [place], [address], 10/02/2024 16:37:14 Procedure Notes None recorded. Medical Equipment None Reported. Allergies Allergen ID Allergen Name Allergen Category Reaction Reaction Severity Criticality Documentation Date Start Date Code Code System Note Provider Name and Address Organization Details Recorded Time 01525 Demerol medicatio n Not available Not available Not available 10/02/20232008 12393 1 RxNorm Aller gyRea ction : 'Skin React ion'; Not Available [facility] 4 14:47:15 50967 Cymbalta medicatio n Not available Not available Not available 10/02/20232016 78061 4 RxNorm Aller gyNam e: 'Cymb stanislav Cpep' ; Not Available [facility] 4 14:47:15 61595 tetracycl ine hydrochlo ride medicatio n Not available Not available Not available 10/02/20232022 [address] [facility] 4 14:47:15 54955 lisinopri l medicatio n Not available Not available Not available 10/02/20232022 [address] [facility] 4 14:47:15 Medications Name Sig Start Date Stop Date Status Note LastModified by Organization Details LastModified Time amoxicillin 500 mg capsule TAKE 4 CAPSULE BY MOUTH 1 HOUR BEFORE ANY DENTAL WORK active Not Available Not Available No t Available prednisone 10 mg tablet active Not Available Not Available Not Available gabapentin 600 mg tablet TAKE 1 TABLET BY MOUTH THREE TIMES DAILY active Not Available Not Available No t Available tizanidine 2 mg tablet TAKE 1 TO 2 TABLETS BY MOUTH THREE TIMES DAILY NEEDED FOR SPASM active Not Available Not Available No t Available azithromyci n 250 mg tablet active Not Available Not Available Not Available penicillin V potassium 500 mg tablet TAKE 1 TABLET BY MOUTH TWICE DAILY FOR 10 DAYS active Not Available Not Available No t Available amlodipine 5 mg tablet TAKE 1 TABLET BY MOUTH DAILY active Not Available Not Available No t Available ketorolac 0.5 % eye drops INSTILL 1 DROP INTO THE AFFECTED EYE 3 TIMES DAILY active Not Available Not Available No t Available amitriptyli ne 10 mg tablet TAKE 1 TO 2 TABLETS BY MOUTH EVERY DAY AT BEDTIME active Not Available Not Available No t Available benzonatate 100 mg capsule TAKE 1 CAPSULE BY MOUTH THREE TIMES DAILY FOR 10 DAYS active Not Available Not Available No t Available pseudoephed rine-guaife nesin ER 80-700 mg tablet,exte nded release Percocet 5-325MG Tablet 2017 active Statu s: 'Curr ent'; Not Available Not Available Not Available prednisone 50 mg tablet TAKE 1 TABLET BY MOUTH DAILY FOR 5 DAYS WITH FOOD OR MILK active Not Available Not Available No t Available lidocaine 5 % topical patch APPLY TOPICALLY TO PAINFUL AREA FOR 12 HOURS REMOVE FOR 12 HOURS active Not Available Not Available No t Available losartan 25 mg tablet TAKE 1 TABLET BY MOUTH DAILY active Not Available Not Available No t Available gabapentin 300 mg capsule TAKE 2 CAPSULES BY MOUTH THREE TIMES DAILY active Not Available Not Available No t Available hydrochloro thiazide 25 mg tablet TAKE 1 TABLET BY MOUTH DAILY active Not Available Not Available No t Available lorazepam 1 mg tablet TAKE 2 TABLETS BY MOUTH 1 HOUR BEFORE PROCEDURE . MAY ADD 1 PILL 30 MINUTES BEFORE IF NOT FEELING WELL active Not Available Not Available No t Available amoxicillin 875 mg-potassiu m clavulanate 125 mg tablet TAKE 1 TABLET BY MOUTH TWICE DAILY FOR 10 DAYS active Not Available Not Available No t Available oxycodone 5 mg tablet TAKE 1 TABLET BY MOUTH EVERY 6 HOURS NEEDED FOR PAIN active Not Available Not Available No t Available rosuvastati n 10 mg tablet TAKE 1 TABLET BY MOUTH DAILY active Not Available Not Available No t Available Atrovent HFA 17 mcg/actuati on aerosol inhaler INHALE 2 INHALATIO N BY MOUTH FOUR TIMES DAILY active Not Available Not Available No t Available Pulmicort Flexhaler 90 mcg/actuati on breath activated INHALE 2 PUFFS BY MOUTH TWICE DAILY active Not Available Not Available No t Available oxycodone HCl-oxycodo ne-ASA oxyCODONE HCl 5MG Tablet 07/26 completed Statu s: 'Disc ontin ued'; Not Available Not Available Not Available Tradjenta Tradjenta 5MG Tablet 2022 active Statu s: 'Curr ent'; Not Available Not Available Not Available Trulicity 1.5 mg/0.5 mL subcutaneou s pen injector ADMINISTE R 1.5 MG UNDER THE SKIN EVERY WEEK. ROTATE INJECTION SITES active Not Available Not Available No t Available Trulicity 0.75 mg/0.5 mL subcutaneou s pen injector ADMINISTE R 0.75 MG UNDER THE SKIN EVERY WEEK. ROTATE INJECTION SITES active Not Available Not Available No t Available BinaxNOW COVID-19 Ag Self Test kit TEST DIRECTED TODAY active Not Available Not Available No t Available Vitals Date Recorded Body height Body mass index (BMI) Body weight Provider Name and Address Organization Details Last Updated DateTime 05/06/2024 160.02 cm 29.1 kg/m2 83127.15 g MARICRUZ MIGUEL [facility] 05/06/2024 09:18:29 Date Recorded Body height Body mass index (BMI) Body weight Provider Name and Address Organization Details Last Updated DateTime 12/11/2024 160.02 cm 29.2 kg/m2 23229.74 g SAVITA PENA [facility] 12/11/2024 11:12:50 Social History None recorded. Functional Status None recorded. Mental Status None recorded. Family History Nothing Reported. Medical History No medical history recorded. Gynecological HistoryNo gynecological history recorded. Obstetrics History GPAL:G 0 P 0 0 0 0 Past Encounters Encounter ID Performer Location Encounter Start Date Encounter Closed Date Diagnosis/Indication Diagnosis SNOMED-CT Code Diagnosis ICD10 Code Diagnosis Note [id number] Shana Valdovinos, OTR/L,CHT [facility] [address]st [address] [facility] [address] [place] [address] 11/27/2023 14:45:10 11/27/2023 15:02:01 Postoperative care 841796848 Z48.89 The surgical wounds are inspected and found to be clean and dry. The edges of the incisions are approximat ed with intact sutures. Patient has intact neurovascu lar structures with only slight tenderness at the incision. No surroundin g erythema, wound drainage, warmth or signs of infection. The patient states no pain when palpating around the surgical site and the surroundin g structures . The involved digits are able to demonstrat e 80% involvemen t in a composite fist. Stiffness at the IP joints as well as swelling at the proximal phalanxes and over the metacarpal heads limit full flexion. The patient states some difficulty with full digital extension due to a previous injury over the dorsal DIP joint in May 2023. She is interested in having this assessed however of the hand therapist has advised that the focus on flexion first before addressing the extensor lag. The distal sensation for light touch is assessed. The patient is able to demonstrat e a positive response to light touch. Sutures are removed today without complicati on. The patient was instructed to contact the office if there should arise any concerns with the surgical site or if there is not sufficient functional recovery. This office visit was complete at 10 minutes. [id number] OSWALDO Bowles [address] [place] [address] 05/06/2024 08:54:31 05/29/2024 11:31:11 Pain of right elbow joint 2167155252 4800580 M25.521 Lateral epicondylitis 20 4621808 M77.11 [id number] OSWALDO Mac - [facility] [address] [place] [address] 09/26/2024 09:47:07 10/11/2024 16:10:20 Injury of right knee 9950244065 5174676 S89.91XA [id number] MD ROLAND Quinonez [address] [place] [address] 12/11/2024 10:33:56 12/13/2024 12:39:26 Triggering of digit 832587095 M65.30 Health Concerns Section Related Observation LastModified by Organization Detai ls LastModified Time None Recorded Concern Status LastModified by Organization Details LastModified Time None Recorded Advance Directives Directive None Recorded Payers Encounter Date Sequence Insurance Name Policy Number Policy De Leon Covered Member ID De Leon Member ID Guarantor Name 05/06/2024 1 [place] [employer] Valencia Narayan [id number] Valencia Narayan 05/06/2024 2 [place] [facility] Valencia Narayan [id number] Valencia Narayan 09/26/2024 1 [place] [employer] Valencia Narayan [id number] Valencia Narayan 09/26/2024 2 [place] [facility] Valnecia Narayan [id number] Valencia Narayan 12/11/2024 1 [place] [employer] Valencia Narayan [id number] Valencia Narayan 12/11/2024 2 [place] [facility] Valencia Narayan [id number] Valencia Narayan Notes Date Note Type Note Provider Name and Address Organization Details Recorded Time 11/27/2023 text/html This patient is a 67-year-old woman who presents to the office today for a postoperative visit following a tenolysis of the left long and ring fingers. The patient states that she started currently active range of motion with hand therapy after having the previous experience of heavy scarring and stiffness when she had the similar surgery on her right side. She is now 2 weeks status post this surgery on her left and doing quite well. I will see her today for a wound assessment and suture removal. Shana Valdovinos, OTR/L,CHT [address] [facility] [address], [place], [address], [facility] 11/27/2023 15:01:56 05/06/2024 text/html I am seeing the patient today under the supervision of dr Valentino who was available but who did not see the patient. DX: Right Lateral and medial epicondylitis HPI: 68-year-old female here for orthopedic consultation. She is complaining of medial and lateral right elbow pain for the past 3 months. Unable to take anti-inflammatories because she has had gastric surgery. Tylenol was ineffective. Has pain with holding her cup of coffee. Past family, medical, social history and review of systems has been reviewed, updated and is located in the patient? s chart. Examination: Alert and oriented ? ? 3 . No acute distress. Nonantalgic gait.Right Elbow reveals no soft tissue swelling. The patient is tender over the lateral epicondyle. Lateral elbow pain with wrist extension, resisted wrist extension and resisted forearm supination. No Tenderness medially or over the olecranon process. Examination: Alert and oriented ? ? 3 . No acute distress. medial Elbow reveals no soft tissue swelling. The patient is tender over the medial epicondyle. medial elbow pain with wrist flexion, resisted wrist flexion and resisted forearm pronation. Left elbow ROM full. Full pronation/supination . No evidence of varus/valgus instability. No radiocapitellar crepitus. No medial or lateral epicondylar tenderness. No evidence for effusion, no evidence of mechanical symptoms or locking. Intact median, radial and ulnar nerve both motor and sensory function. Negative Tinel at the level of the elbow. X-rays ordered, obtained and reviewed at [facility] 3 views right elbow reveals no osteoarthritis. Possible lateral osteophyte along the condyle Impression/Plan: Findings and situation were discussed with the patient. Treatment options were discussed. The patient would like to proceed with a cortisone injection. Under aseptic technique, 6 mg of Celestone, and 1 cc of 1% plain Lidocaine were injected into the right medial and lateral epicondylar region. The patient tolerated the procedure well. Patient was provided with a handout that instructs on home stretching exercises. The patient was provided with a Velcro wrist splint to minimize the use the forearm extensors. Patient follow-up in 6 weeks for reexamination if no improvement. The patient has weakness and instability of their extremity which requires stabalization for this semi-rigid/rigid orthosis to improve their funciton. Verbal and written instructions for the use and application of this item were given. Patient was instructed that should the brace result in increased pain, decreased sensation, increased swelling or an overall worsening of their medical condition, to please contact our office immediately velcro splint-golfers and tennis elbow Joie Lopez PA-C [address] [facility] [address], [place], [address], [facility] 05/06/2024 10:07:29 12/11/2024 text/html Patient is a 68-year-old female well-known to me having undergone multiple trigger finger release surgeries most recent surgery in October 2023 for the left hand trigger finger. Here today with new left trigger thumb, started a few months ago. Shruti Huerta MD [address], [place], [address], [facility] 12/11/2024 12:20:44 OBGyn Episode No OBEpisode recorded.
--- OUTSIDE RECORDS SUMMARY | 2024-12-17 09:32 | XMS_ITS | Data Portability ---
Author Organization [place] [facility] [place] Address [address] [facility] [address] [place] [address] Care Team Providers Care Rivet Tapping Machine Operator Name Role Phone TRISTEN STEVENS NP Primary Care Provider Assessment Encounter Date Assessment Date Assessment LastModified by Organization Details LastModified Time 10/12/2022 10/12/2022 This is a pleasant 66-year-old female with clinical exam findings suggestive of left groin strain in the presence of well-seated well-positioned total hip arthroplasty. I had a lengthy discussion with the patient regarding management. 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 She would like to give this 1 to 2 weeks she can certainly take [id number] pain medication for symptomatic relief as well as topicals such as Salonpas 4% lidocaine patches. If her symptoms do not improve however she will call my office and I will order CAT scan of the left hip with follow-up if necessary with Dr. Clarke. Additional treatment plan discussed with the patient in detail included the following; - Provider focused nonsteroidal anti-inflammator y regimen (discussed were the pros, cons, benefits and risks as well as any black box warnings) - Analgesic pain medication for pain suppression (discussed were the pros, cons, benefits and risks as well as any black box warnings) - The use of topical pain relieving medication were discussed - The use of ice to decrease inflammation and pain - The use of assistive ambulatory devices for ambulation and fall prevention - Formal specific guided physical therapy program I reviewed my findings at length with the patient today. ? ? ?We discussed the nature and etiology of this problem along with current treatment options. We discussed the expected course and outcomes and what to expect. We also discussed risks and benefits. ? ? ?All of their questions were answered today, and there was exhibited understanding and comprehension of all that was discussed. 10 minutes were spent reviewing previous imaging and charting. ? ? ?10 minutes were spent obtaining patient history. ? ? ?5 minutes were spent on physical exam. ? ? ?5? ? ?minutes were spent explaining diagnosis and assessment. Today's documentation was made using voice recognition software. This note may contain grammatical errors secondary to the software. Not available 10/12/2022 15:16:52 Plan of Treatment Reminders Order Date Submit Date Provider Last Modified By Organization Details Last Modified Time Details Appointments None record ed. Lab None record ed. Referral None record ed. Procedures None record ed. Surgeries None record ed. Imaging XR, hip + pelvis , unilat eral, 2 or 3 view 023 10/13/19 23 [email or web address] [facility], [address], [facility] [address], [place], [address], 07:57:44 Medication Orders None record ed. Patient TargetsNo targets recorded. Patient Instructions Encounter Date Encounter Id Patient Instructions Last Modified By Organization Details Last Modified Time 10/12/2022 [id number] AP pelvis left frog-leg view reveal well-seated well-positioned left total hip arthroplasty without sign of loosening. No acute bony abnormality. Not available 10/12/2022 15:17:43 Reason for Referral None Reported. Problems Name Problem SNOMED Code Status Onset Date Resolution Date Notes Provider Name and Address Organization Details Recorded Time Strain of muscle of left groin region [id number] Active 2022 ISIAH FERREIRA PA-C [address] [facility] [address], [place], [address] [facility] 3 15:19:32 Problem Notes None recorded. Procedures Surgical History Date Name Laterality Status Provider Name and Address Organization Details Recorded Time 04/08/20 13 arthroplasty of right hip joint completed Briseida Gleason [facility] 10/12/2022 14:38:55 05/02/20 11 total replacement of left hip joint completed Briseida Gleason [facility] 10/12/2022 14:40:10 lumbar laminectomy and excision of intradural spinal lesion completed Briseida Gleason [facility] 10/12/2022 14:40:39 primary fusion of cervical spine completed Briseida Gleason [facility], [facility] 10/12/2022 14:40:52 bypass of stomach completed [facility]ida Gleason [facility] 10/12/2022 14:41:25 hysterectomy completed Briseida Gleason [facility], P 10/12/2022 14:41:37 cholecystectomy completed Briseida Gleason [facility] 10/12/2022 14:41:56 Imaging Results None recorded. Procedure Notes None recorded. Medical Equipment None Reported. Allergies Allergen ID Allergen Name Allergen Category Reaction Reaction Severity Criticality Documentation Date Start Date Code Code System Note Provider Name and Address Organization Details Recorded Time 235 Demerol medicatio n Not available Not available Not available 10/12/2022 27369 1 RxNorm Briseida Gleason null, [place] [facility] 14:34:56 236 tetracycl ine medicatio n Not available Not available Not available 10/12/2022 61027 RxNorm Briseida Gleason null, [place] [facility] 14:35:04 237 Cymbalta medicatio n Not available Not available Not available 10/12/2022 23860 4 RxNorm Briseida Gleason null, [place] [facility] 14:35:12 Medications Name Sig Start Date Stop Date Status Note LastModified by Organization Details LastModified Time amoxicillin 500 mg capsule TAKE 4 CAPSULES BY MOUTH MORNING OF PROCEDURE active Not Available Not Available No t Available prednisone 10 mg tablet active Not Available Not Available Not Available gabapentin 600 mg tablet TAKE 1 TABLET BY MOUTH THREE TIMES DAILY active Not Available Not Available No t Available azithromyci n 250 mg tablet active Not Available Not Available Not Available tizanidine 4 mg tablet TAKE 1 TABLET BY MOUTH EVERY NIGHT NEEDED FOR MUSCLE SPASM active Not Available Not Available No t Available FreeStyle Lancets 28 gauge USE DIRECTED TO TEST BLOOD GLUCOSE DAILY active Not Available Not Available No t Available prednisone 20 mg tablet TAKE 3 TABLETS BY MOUTH DAILY active Not Available Not Available No t Available sulfamethox azole 800 mg-trimetho prim 160 mg tablet active Not Available Not Available Not Available amoxicillin 500 mg tablet active Not Available Not Available Not Available amitriptyli ne 10 mg tablet TAKE 1 TO 2 TABLETS BY MOUTH EVERY DAY AT BEDTIME active Not Available Not Available No t Available gabapentin 300 mg capsule TAKE 1 CAPSULE BY MOUTH THREE TIMES DAILY active Not Available Not Available No t Available codeine 10 mg-guaifene sin 100 mg/5 mL oral liquid TAKE 5 ML BY MOUTH EVERY 4 HOURS FOR 7 DAYS NEEDED FOR COUGH active Not Available Not Available No t Available hydrochloro thiazide 25 mg tablet TAKE 1 TABLET BY MOUTH DAILY active Not Available Not Available No t Available mupirocin 2 % topical ointment APPLY DAILY TO BIOPSY SITE. KEEP AREA CLEAN WITH SOAP AND WATER active Not Available Not Available No t Available lorazepam 1 mg tablet TAKE 2 TABLETS BY MOUTH 1 HOUR BEFORE PROCEDURE active Not Available Not Available No t Available fluticasone propionate 50 mcg/actuati on nasal spray,suspe nsion SHAKE LIQUID AND USE 1 SPRAY IN EACH NOSTRIL TWICE DAILY active Not Available Not Available No t Available loratadine 10 mg tablet TAKE 1 TABLET BY MOUTH EVERY DAY active Not Available Not Available No t Available amoxicillin 875 mg-potassiu m clavulanate 125 mg tablet TAKE 1 TABLET BY MOUTH TWICE DAILY FOR 10 DAYS 10/12 completed Not Available Not Available Not Available Ventolin HFA 90 mcg/actuati on aerosol inhaler INHALE 1-2 PUFFS INTO THE LUNGS EVERY 4-6 HOURS NEEDED active Not Available Not Available No t Available oxycodone 5 mg tablet TAKE 1 TABLET BY MOUTH EVERY 6 HOURS NEEDED FOR PAIN active Not Available Not Available No t Available Pulmicort Flexhaler 90 mcg/actuati on breath activated INHALE 2 PUFFS BY MOUTH TWICE DAILY NEEDED FOR COUGH active Not Available Not Available No t Available FreeStyle Lite Meter kit USE TO TEST BLOOD SUGAR DAILY active Not Available Not Available No t Available FreeStyle Lite Strips USE DIRECTED FOR TYPE 2 DM. TEST DAILY active Not Available Not Available No t Available Tradjenta 5 mg tablet TAKE 1 TABLET BY MOUTH DAILY active Not Available Not Available No t Available BinaxNOW COVID-19 Ag Self Test kit TEST DIRECTED TODAY active Not Available Not Available No t Available Vitals Date Recorded Body height Body mass index (BMI) Body weight Provider Name and Address Organization Details Last Updated DateTime 10/12/2022 160.02 cm 30.1 kg/m2 73707.[address] [facility] 10/12/2022 14:36:07 Social History None recorded. Functional Status None recorded. Mental Status None recorded. Family History Relationship Description Onset Age of this Age Resolved Age Notes LastModified by Organization Details LastModified Time Father Blood coagulation disorder [email or web address] Not available 2022 14:37:18 Father Heart disease [email or web address] Not available 2022 14:38:06 Father Hypertensive disorder [email or web address] Not available 2022 14:38:26 Mother Diabetes mellitus [email or web address] Not available 2022 14:37:31 Mother Heart disease [email or web address] Not available 2022 14:38:06 Mother Hypertensive disorder [email or web address] Not available 2022 14:38:26 Medical History Condition Response Diabetes Y Anemia Y Reflux/GERD Y Hypertension Y Osteoporosis Y Gynecological HistoryNo gynecological history recorded. Obstetrics History GPAL:G 0 P 0 0 0 0 Past Encounters Encounter ID Performer Location Encounter Start Date Encounter Closed Date Diagnosis/Indication Diagnosis SNOMED-CT Code Diagnosis ICD10 Code Diagnosis Note [address] [place] [address] 10/12/2022 14:25:34 10/12/2022 15:12:11 Pain of left hip joint [id number] 87091 M25.552 Strain of muscle of left groin region [id number] 2727518 S76.012A Health Concerns Section Related Observation LastModified by Organization Detai ls LastModified Time None Recorded Concern Status LastModified by Organization Details LastModified Time None Recorded Advance Directives Directive None Recorded Payers Encounter Date Sequence Insurance Name Policy Number Policy De Leon Covered Member ID De Leon Member ID Guarantor Name 10/12/2022 1 MEDICARE B-[place]: [employer] MEDICARE - [facility] Valencia Narayan [id number] Valencia Narayan 10/12/2022 2 [place] [facility] Valencia Narayan [id number] Valencia Narayan Notes Date Note Type Note Provider Name and Address Organization Details Recorded Time 10/12/2022 text/html Pleasant 66-year-old female history of bilateral hip replacements by Dr. Wiggins on dates as noted below. Patient states approximately 2 weeks ago onset of left outer hip/groin pain mostly on the region of the iliac crest. 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 She denies any injury recently however she did have an ankle sprain in June 2022 due to a fall without any groin symptoms at the time. She describes her pain as sharp in nature that is tender upon palpation. She denies any redness any swelling. She states she cannot take nonsteroidal anti-inflammatories due to GI upset. She takes chronic oxycodone for chronic back pain and neck pain. She also takes acetaminophen. She is able to ambulate without assistive devices here for evaluation treatment. She denies any neurological symptoms Right total hip arthroplasty by Dr. Wiggins 04/08/2013Left total hip arthroplasty by Dr. Wiggins on 05/02/2011 ISIAH FERREIRA PA-C [address] [place] [address], [phone], [place] [facility] 10/12/2022 15:20:12 OBGyn Episode No OBEpisode recorded.
--- OUTSIDE RECORDS SUMMARY | 2024-12-17 09:32 | XMS_ITS | Clinical Summary ---
Author Organization [facility] Address [address] [place] [address] Care Team Providers Care Chief Nursing Officer Name Role Phone Betsy Clarke NP Primary Care Provider [phone] Allergies Active Allergy Reactions Criticality Noted Date [...] age to complete this topic Care Teams Chief Nursing Officer Relationship Specialty Start Date End Date Betsy Clarke NP [address] [place] [address] PCP - General Gerontology 10/10/19
--- OUTSIDE RECORDS SUMMARY | 2024-12-17 09:32 | XMS_ITS | Clinical Summary ---
Author Organization [facility] Address [address] [place] [address] Phone Care Team Providers Care Ciaio Lumite Injector Name Role Phone Betsy Clarke NP Primary [...] Date Site/Laterality Comments GASTRIC BYPASS 2004 PROCEDURE: [place] GASTRIC RSTCV W/BYP W/SM INT RCNSTJ LIMIT ABSRPJ HYSTERECTOMY 1979 PROCEDURE: HISTORICAL HYSTERECTOMY BACK SURGERY 2001 PROCEDURE: HISTORICAL BACK SURGERY; COMMENT: SPINAL FUSION CHOLECYSTECTOMY PROCEDURE: [place] CHOLECYSTECTOMY JOINT REPLACEMENT Bilateral hip CERVICAL FUSION Medical History Medical History Date Comments HTN (hypertension) Diabetes (CMS/HCC V24, CMS/HCC V28) High cholesterol Family History Medical History Relation [...] Vaccine (3 - season) 2024 10/22/2020, 10/01/2020 Diabetes: Annual Urine Albumin-Creatinine Ratio (uACR) 06/03/2024 Diabetes: Blood Sugar Control Test (HGBA1C) 06/03/2024 Hypertension/CHF/CAD Annual BMP Blood Test 06/03/2024 Breast Cancer Screening 12/01/2024 12/02/19, 08/31/2021, 08/09/2018 Influenza Vaccine (Season Ended) 2025 07/08/2022, 05/11/2021, 05/05/2020, Additional history exists Pneumococcal Vaccine: 50+ Years (3 of 3 [...] this topic Medical Devices Implanted Type Area Senior Javascript Engineer Device Identifier Shelf Expiration Date Model / [...] Maintenance Results * COLONOSCOPY Anesthesia - MAC; [facility] ENDOSCOPY (06/03/2024 8:33 AM EST) Anatomical Region Laterality Modality Endoscopy 06/03/2024 7:54 AM EST Narrative 06/03/2024 8:[address] [facility] GI Patient Name: Valencia Mart ?Procedure Date: [...] In: Scope Out: ? Endoscopy Department at [facility] - [address] [place] [address], ? [place] [id number] Procedure Note Hayes Fernandez MD - 06/03/2024 [facility] Patient Name: Valencia Mart Procedure Date: [...] Scope In: Scope Out: Endoscopy Department at [facility] - [address] [place] [phone] us Hayes Fernandez MD GI~PROCEDURE ORDERABLES Final Result * NORA SCREENING DIGITAL (12/01/2022 11:31 AM EDT) Anatomical Region Laterality Modality Mammography 12/01/2022 8:54 AM EDT Narrative 12/01/2022 11:31 AM EDT [facility] Diagnostic Imaging Department [address] [place] [address] [id number] Patient: ??VALENCIA MART ?/Age/Sex: 1955 - 66 - F Unit#: ??[id number] ? Location/Status: ??SPDIMAM/REG CLI ? Mnemonic/Ordering Site: [...] the MLO projection. Computer aided detection with [employer] 7.2-H and [employer] 3D 3.1 was employed. TISSUE DENSITY: b. [...] Routine screening mammogram BILATERAL in 1 year. [address]8763, [address]397 3342F, 7025F Dictating Physician: ??MANISHA WALLIS MD Electronically Signed by: ??MANISHA WALLIS MD Dic Date/Time: ??12/01/22 1129 Sign date/Time: ??12/01/22 1131 Procedure Note Manisha Wallis MD - 09/01/2023 [facility] Diagnostic Imaging Department [address] [place], [place] [id number] Patient: VALENCIA MART D.O.B./Age/Sex: 1955 - 66 - F Unit#: [id number] Location/Status: SPDIMAM/REG CLI Mnemonic/Ordering Site: [facility] Ordering Physician: ERICA LAGOS MD [facility] Screening Digital - 12/01/22920 EXAM: [facility] Screening Digital EXAM DATE AND TIME: 12/01/2022 9:21 AM HISTORY: Screening. Personal history of colon carcinoma. Reductionmammoplasty in 1998. COMPARISON: 08/31/21, 03/18/19, 08/09/18, 05/08/17, 04/20/15 TECHNIQUE: CC and MLO views of both breasts were obtained using fullfield digital mammography. Bilateral digital breast tomosynthesis was performedin the MLO projection. Computer aided detection with [employer] 7.2-H andSOASTA 3D 3.1 was employed. TISSUE DENSITY: b. [...] Routine screening mammogram BILATERAL in 1 year. 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
== END 2024-12-17 09:31 | disposition home or self-care (01) ==
LOC: HO.HOS 09:00
PROVIDERS: Visit Provider Orthopaedic Surgery
DX: M25.561 Pain in right knee (principal)
CPT/HCPCS: 99024

== ENCOUNTER → 2024-12-17 08:59 | Outpatient (BNVA) | payer MEDICARE, MEDICAID, SELFPAY | PROVIDERS: Visit Provider Orthopaedic Surgery | DX: M25.561 Pain in right knee (principal); Z47.89 Encounter for other orthopedic aftercare; Z98.890 Other specified postprocedural states | CPT/HCPCS: 99212 ==

== ENCOUNTER 2025-02-25 10:25 | Outpatient (REF) | payer MEDICARE, MEDICAID, SELFPAY ==
--- NOTE | ~2025-02-25 | XR_ITS ---
EXAMINATION: XR PELVIS CLINICAL INFORMATION: M25.551 - Pain in right hip COMPARISON: None available. TECHNIQUE: AP view of the pelvis. FINDINGS: Bilateral total hip arthroplasty. Both acetabular components are secured by two screws. Both proximal femurs are stabilized with cerclage wires. There is no abnormal lucency at bone metal interfaces. There are irregular enthesophytes at the anterior superior iliac spines. No other abnormalities. XR/XR pelvis 1-2V IMPRESSION: Bilateral total hip replacements. Electronically signed by: Mckinley Turner MD 02/25/2025 02:59 PM EDT
--- OUTSIDE RECORDS SUMMARY | 2025-02-26 11:17 | XMS_ITS | Clinical Summary ---
Author Organization [facility] Address [address] [place] [address] Care Team Providers Care Campus Manager Name Role Phone Betsy Clarke NP Primary Care Provider [phone] Allergies Active Allergy Reactions Criticality Noted Date [...] age to complete this topic Care Teams Campus Manager Relationship Specialty Start Date End Date Betsy Clarke NP [address] [place] [address] PCP - General Gerontology 10/10/19
--- OUTSIDE RECORDS SUMMARY | 2025-02-26 11:17 | XMS_ITS | Clinical Summary ---
Author Organization [facility] Address [address] [place] [address] Phone Care Team Providers Care Planer Offbearer Name Role Phone Betsy Clarke NP Primary Care Provider [phone] Allergies Active Allergy Reactions Criticality Noted Date [...] this topic Medical Devices Implanted Type Area Windsurfing Instructor Device Identifier Shelf Expiration Date Model / [...] Maintenance Results * COLONOSCOPY Anesthesia - MAC; [facility] ENDOSCOPY (06/03/2024 8:33 AM EST) Anatomical Region Laterality Modality Endoscopy 06/03/2024 7:54 AM EST Narrative 06/03/2024 8:32 AM EST [facility] GI Patient Name: Valencia Mart Procedure [...] Scope In: Scope Out: Endoscopy Department at [facility] - [address] [place] [phone] Procedure Note Hayes Fernandez MD - 06/03/2024 [facility] GI Patient Name: Valencia Mart Procedure [...] Scope In: Scope Out: Endoscopy Department at [facility] - [address] [place] [phone] us Hayes Fernandez MD GI~PROCEDURE ORDERABLES Final Result * NORA SCREENING DIGITAL (12/01/2022 11:31 AM EDT) Anatomical Region Laterality Modality Mammography 12/01/2022 8:54 AM EDT Narrative 12/01/2022 11:31 AM EDT [facility] Diagnostic Imaging Department [address] [place] [address] Patient: VALENCIA MATR /Age/Sex: 1955 - 66 - F Unit#: [id number] Location/Status: SPDIMAM/REG CLI Mnemonic/Ordering Site: [facility] Ordering Physician: ERICA LAGOS MD [facility] Screening Digital - 12/01/22 - 0921 EXAM: [facility] Screening Digital EXAM DATE AND TIME: 12/01/2022 9:21 AM HISTORY: Screening. Personal history of colon carcinoma. Reduction mammoplasty in 1998. COMPARISON: 08/31/21, 03/18/19, 08/09/18, 05/08/17, 04/20/15 TECHNIQUE: CC and MLO views of both breasts were obtained using full field digital mammography. Bilateral digital breast tomosynthesis was performed in the MLO projection. Computer aided detection with DealTraction 7.2-H and Book Buyback 3D 3.1 was employed. TISSUE DENSITY: b. [...] Routine screening mammogram BILATERAL in 1 year. [address], [address]61 3342F, 7025F Dictating Physician: MANISHA WALLIS MD Electronically Signed by: MANISHA WALLIS MD Dic Date/Time: 12/01/22 1129 Sign date/Time: 12/01/22 1131 Procedure Note Manisha Wallis MD - 09/01/2023 [facility] Diagnostic Imaging Department [address] [place] [address] Patient: VALENCIA MART D.O.B./Age/Sex: 1955 - - F Unit#: [id number] Location/Status: SPDIMAM/REG CLI Mnemonic/Ordering Site: [facility] Ordering Physician: ERICA LAGOS MD [facility] Screening [...] the MLO projection. Computer aided detection with DealTraction 7.2-H andBook Buyback 3D 3.1 was employed. TISSUE DENSITY: b. [...] Routine screening mammogram BILATERAL in 1 year. [address], [address]305 3342F, 7025F Dictating Physician: MANISHA WALLIS MD Electronically Signed by: MANISHA WALLIS MD Dic Date/Time: 12/01/22 1129 Sign date/Time: 12/01/22 1131 us Erica Lagos MD IMG BI PROCEDURES Final Result from Last 3 Months or Most Recently Relevant to Health Maintenance Insurance MEDICARE [place] - [place] Advance Directives Documents on File Type Date Recorded Patient Belting Cutter Expl anation Health Care Decision (hx) 04/09/2013 [...] (hx) 04/09/2013 AD BALLARD DIRECTIVE Care Teams Planer Offbearer Relationship Specialty Start Date End Date Betsy Clarke NP [address] [place] [address] PCP - General Internal Medicine 05/30/22
== END 2025-02-25 10:26 | disposition home or self-care (01) ==
LOC: HO.HOSX 10:25
PROVIDERS: Visit Provider Orthopaedic Surgery
DX: M25.551 Pain in right hip (principal); M25.552 Pain in left hip; M54.50 Low back pain, unspecified; Z79.891 Long term (current) use of opiate analgesic; Z79.899 Other long term (current) drug therapy; Z96.643 Presence of artificial hip joint, bilateral
CPT/HCPCS: 72170; 99212

== ENCOUNTER 2025-02-25 14:44 | Outpatient (AMB) | payer MEDICARE, MEDICAID, SELFPAY ==
[2025-02-25 14:53] VITALS: BMI 29.0
--- NOTE | 2025-02-25 14:53 | A.OFFVIS_ITS ---
Vital Signs 02/25/25 14:53 Height 5 ft 3 in Weight 164 lb BMI 29.0 Intake Visit Reasons: Bilateral hip discomfort Intake Note: Valencia is a 69 year old female who presents with complaints of intermittent discomfort along the lateral aspects of both of her hips, left greater than right, after tripping and falling several weeks ago. She did undergo bilateral total hip replacement surgeries approximately 10 years ago. She also has intermittent low back pain. She underwent low back surgery by Dr. Cline several years ago as well. She continues to get cortisone injections given into her low back at [facility]. Allergies meperidine (From DEMEROL) Allergy (Unknown, Verified 02/25/25 14:57) HIVES tetracycline (TETRACYCLINE) Allergy (Unknown, Verified 02/25/25 14:57) GASTRITIS duloxetine (From Cymbalta) Allergy (Verified 02/25/25 14:57) Unknown irbesartan Allergy (Verified 02/25/25 14:57) Headache levofloxacin (From Levaquin) Allergy (Verified 02/25/25 14:57) Unknown lisinopril Allergy (Verified 02/25/25 14:57) Cough Tetracyclines Allergy (Verified 02/25/25 14:57) Unknown Medication List - Last Reconciled 02/25/25 by Jerry Wiggins MD amitriptyline 10 - 20 mg PO BEDTIME amoxicillin 2,000 mg (4 x 500 mg) PO ONCE cholecalciferol (vitamin D3) (Vitamin D3) 50 mcg PO DAILY cyanocobalamin (vitamin B-12) (Vitamin B-12) 50 mcg PO DAILY dulaglutide (Trulicity) 0.75 mg subcut QWEEK fluticasone propionate 50 mcg/actuation 1 spray intranasal DAILY gabapentin 300 mg PO TID hydrochlorothiazide 25 mg PO DAILY ipratropium bromide 17 mcg/actuation (Atrovent HFA) 2 puffs inhalation QID losartan 25 mg PO DAILY magnesium 400 mg PO DAILY multivitamin 1 tab PO DAILY oxycodone 5 mg PO QID PRN oxycodone 5 mg PO Q6H PRN rosuvastatin 10 mg PO DAILY tizanidine 8 mg PO BEDTIME PRN PFSH Medical History (Updated 02/21/25 @ 08:56 by Jerry Wiggins MD) Diabetes GERD (gastroesophageal reflux disease) Adnexal mass Aortic valve calcification Arthralgia Chronic cervical radiculopathy Migraine Cough Depression Diverticulitis Fibromyalgia Hiatal hernia Hypercholesteremia HTN (hypertension) Anemia Back pain Osteoarthritis Surgical History (Updated 12/02/24 @ 06:13 by Eve Pope RN) Hx of laminectomy Hx of fusion of cervical spine Hx of hysterectomy Hx of breast reduction, elective Hx of bariatric surgery Hx of total hip arthroplasty History of esophagogastroduodenoscopy (EGD) H/O colonoscopy Social History Alcohol intake: current Alcohol intake frequency: holidays/special occasions only Patient Tobacco Use Status: Former Tobacco user Current occupational status: employed 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 Physical Exam Vital Signs: BMI result Body Mass Index 29.0 Const Other: Well-nourished well-developed very friendly female awake alert and oriented x3 in no acute distress Extrem Other: Bilateral hip examination shows that the surgical incisions are well healed, no erythema, minimal discomfort with range of motion, mild tenderness over her bursa, no overlying skin lesions Results Reviewed Results Reviewed: X-rays of the patient's bilateral hips taken today show total hip arthroplasties in good position with no signs of loosening, no acute bony abnormalities Assessment & Plan Assessment & Plan (1) Bilateral hip pain: Code(s): M25.551 - Pain in right hip; M25.552 - Pain in left hip Category: Medical Plan Ms. Narayan presents with intermittent discomfort along the lateral aspects of both of her hips most likely due to greater trochanteric bursitis as well as aggravation of her lumbar spine pathology. I had a lengthy discussion with the patient regarding the treatment options. We will hold off on a cortisone injection at this time. I did give a prescription for a Medrol Dosepak. She will follow up with [facility] as scheduled for continued management of her low back pain. She will contact me prior to her annual follow-up appointment should her symptoms worsen in any way. I spent 20 minutes in reviewing the patient's records and imaging studies, seeing the patient and documenting in the medical record. Orders: Orders XR pelvis 1-2V Today M25.551 - Pain in right hip, M25.552 - Pain in left hip Medications: New methylprednisolone (Medrol (Leonidas)) PO PER PKG DIR 21 ea 0RF Coding Level of Care Code Est Pt Level 3 (74496) Complex EM visit Add On G2211 Diagnoses Bilateral hip pain M25.551; M25.552
--- OUTSIDE RECORDS SUMMARY | 2025-02-25 15:31 | XMS_ITS | Data Portability ---
Author Organization [place] [facility] [place] Address [address] [place] [address] Care Team Providers Care Ceramic Artist Name Role Phone HILDA CRUZ, TRISTEN Primary Care Provider [phone] Assessment Encounter Date Assessment Date Assessment LastModified [...] to 2 weeks she can certainly take yxol-ery-zddjqlv pain medication for symptomatic relief as well [...] findings at length with the patient today. We discussed the nature and etiology of this problem along with current treatment options. We discussed the expected course and outcomes and what to expect. We also discussed risks and benefits. All of their questions were answered today, and there was exhibited understanding and comprehension of all that was discussed. 10 minutes were spent reviewing previous imaging and charting. 10 minutes were spent obtaining patient history. 5 minutes were spent on physical exam. 5minutes were spent explaining diagnosis and assessment. Today's [...] view 023 10/13/19 23 [email or web address] [facility], [address], [facility] [address], [place], [address], 3 07:57:44 Medication Orders None record ed. Patient [...] Strain of muscle of left groin region [id number] Active 2022 ISIAH FERREIRA PA-C [address] [facility] [address], [place], [address] [place] [facility], P 3 15:19:32 Problem Notes None recorded. Procedures Surgical History Date Name Laterality Status Provider Name and Address Organization Details Recorded Time 04/08/20 13 arthroplasty of right hip joint completed Briseida [facility] [place] [facility], P 10/12/2022 14:38:55 05/02/20 11 total replacement of left hip joint completed Briseida [facility], P 10/12/2022 14:40:10 lumbar laminectomy and excision of intradural spinal lesion completed Briseida [facility], P 10/12/2022 14:40:39 primary fusion of cervical spine completed Briseida [facility], [facility] 10/12/2022 14:40:52 bypass of stomach completed Briseida Gleason C [facility], P 10/12/2022 14:41:25 hysterectomy completed Briseida Gleason [facility] - [facility], P 10/12/2022 14:41:37 cholecystectomy completed Briseida Gleason [facility] 10/12/2022 14:41:56 Imaging Results None recorded. Procedure Notes None recorded. Medical Equipment None Reported. Allergies Allergen ID Allergen Name Allergen Category Reaction Reaction Severity Criticality Documentation Date Start Date Code Code System Note Provider Name and Address Organization Details Recorded Time 235 Demerol medicatio n Not available Not available Not available 10/12/2022 26730 1 RxNorm Briseida Gleason null, [place] [facility] 3 14:34:56 236 tetracycl ine medicatio n Not available Not available Not available 10/12/2022 90998 RxNorm Briseida Gleason null, [place] [facility] 3 14:35:04 237 Cymbalta medicatio n Not available Not available Not available 10/12/2022 07761 4 RxNorm Briseida Gleason null, [facility] P 3 14:35:12 Medications Name Sig [...] Updated DateTime 10/12/2022 160.02 cm 30.1 kg/m2 34941.[address] [facility], P 10/12/2022 14:36:07 Social History None recorded. [...] available 2022 14:38:26 Medical History Condition Response Anemia Y Diabetes Y Reflux/GERD Y Hypertension Y Osteoporosis Y Gynecological HistoryNo gynecological history recorded. Obstetrics History GPAL:G 0 P 0 0 0 0 Past Encounters Encounter ID Performer Location Encounter Start Date Encounter Closed Date Diagnosis/Indication Diagnosis SNOMED-CT Code Diagnosis ICD10 Code Diagnosis Note [address] [facility] [address] [facility] [address] [place] [address] 10/12/2022 14:25:34 10/12/2022 15:12:11 Pain of left hip joint [id number] 66533 M25.552 Strain of muscle of left groin region [id number] S76.012A Health Concerns Section Related Observation LastModified by Organization Detai ls LastModified Time None Recorded Concern Status LastModified by Organization Details LastModified Time None Recorded Advance Directives Directive None Recorded Payers Insurance Date Sequence Insurance Name Policy Number Policy De Leon Covered Member ID De Leon Member ID Guarantor Name 10/12/2022 1 MEDICARE B-[place]: [place] MEDICARE - [facility] Valencia Narayan [id number] Valencia Narayan 12/09/2022 2 [place]: [facility] Valencia Narayan [id number] Valencia Narayan 10/17/2022 MEDICARE B-[place]: [employer] Valencia Narayan [id number] Valencia Narayan OBGyn Episode No OBEpisode recorded.
--- OUTSIDE RECORDS SUMMARY | 2025-02-25 15:31 | XMS_ITS | Clinical Summary ---
Author Organization [facility] Address [address] [place] [address] Care Team Providers Care Legal Transcriptionist Name Role Phone Betsy Clarke NP Primary Care Provider [phone] Allergies Active Allergy Reactions Criticality Noted Date [...] 64 06/03/2020 2:04 PM EST Temperature 36.4 C (97.5 F) 06/03/2020 2:04 PM EST Respiratory Rate - - Oxygen Saturation - [...] 1 - PCV) 12/16/2019 Influenza Vaccine (#1) 2025 RSV Adult > 60+ Yrs or Pregn ant (1 - 1-dose 75+ series) 2029 Hepatitis B Vaccines Aged Out No long er eligible based on patient's age to complete this topic RSV Ped < 20 months Aged Out No longe r eligible based on patient's age to complete this topic Care Teams Legal Transcriptionist Relationship Specialty Start Date End Date Betsy Clarke NP [address] [place] [address] PCP - General Gerontology 10/10/19
--- OUTSIDE RECORDS SUMMARY | 2025-02-25 15:31 | XMS_ITS | Clinical Summary ---
Author Organization [facility] Address [address] [place] [address] Phone Care Team Providers Care Nuclear Reactor Operator Name Role Phone Betsy Clarke NP Primary [...] Date Site/Laterality Comments GASTRIC BYPASS 2004 PROCEDURE: TX GASTRIC RSTCV W/BYP W/SM INT RCNSTJ LIMIT ABSRPJ HYSTERECTOMY 1979 PROCEDURE: HISTORICAL HYSTERECTOMY BACK SURGERY 2001 PROCEDURE: HISTORICAL BACK SURGERY; COMMENT: SPINAL FUSION CHOLECYSTECTOMY PROCEDURE: TX CHOLECYSTECTOMY JOINT REPLACEMENT Bilateral hip CERVICAL FUSION [...] 57 06/03/2024 8:54 AM EST Temperature 36.1 C (96.9 F) 06/03/2024 8:34 AM EST Respiratory Rate 19 06/03/2024 8:54 AM EST [...] 2) 2004 Cholesterol Screening (Lipid Panel) 07/02/2022 Hepatitis C Screening 07/02/2022 Medicare Annual Wellness Visit 07/02/2022 Osteoporosis Screening (Bone Density Screening) 07/02/2022 Social Influencers of Health Screening 07/02/2022 COVID-19 Vaccine ( season) 2024 10/22/2020, 10/01/2020 Diabetes: Annual Urine Albumin-Creatinine Ratio (uACR) 06/03/2024 Diabetes: Blood Sugar Control Test (HGBA1C) 06/03/2024 Hypertension/CHF/CAD Annual BMP Blood Test 06/03/2024 Depression Screening 07/31/2024 Breast Cancer Screening 12/01/2024 12/02/19 23, 08/31/2021, 08/09/2018 Influenza Vaccine (#1) 2025 2, 05/11/2021, 05/05/2020, Additional history exists Pneumococcal Vaccine: [...] this topic Medical Devices Implanted Type Area Cylinder Die Machine Helper Device Identifier Shelf Expiration Date Model / [...] COLONOSCOPY Anesthesia - MAC; [facility] ENDOSCOPY (06/03/2024 8:33 AM EST) Anatomical Region Laterality Modality Endoscopy 06/03/2024 7:54 AM EST Narrative 06/03/2024 8:32 AM EST [facility] GI Patient Name: Valencia Mart Procedure Date: 06/03/2024 7:54 AM Date of : 1955 Age: 68 Room: ROOM 17 Gender: Female Note Status: Finalized Attending MD: Hayes Fernandez MD, Procedure Date No Time: 06/03/2024 Procedure: Colonoscopy Indications: High risk colon cancer surveillance: Personal history of colonic polyps Providers: Hayes Fernandez MD Referring MD: Hayes Fernandez MD Medicines: Monitored Anesthesia Care Complications: No immediate complications. Estimated Blood Loss: Estimated blood loss: none. Procedure: Pre-Anesthesia Assessment: - ASA Grade Assessment: II - A patient with mild systemic disease. - After reviewing the risks and benefits, the patient was deemed in satisfactory condition to undergo the procedure. After I obtained informed consent, the scope was passed under direct vision. Throughout the procedure, the patient's blood pressure, pulse, and oxygen saturations were monitored continuously.The Olympus Pediatric Colonoscope was introduced through the anus and advanced to the cecum, identified by appendiceal orifice and ileocecal valve. The colonoscopy was performed without difficulty. The patient tolerated the procedure well. The quality of the bowel preparation was good. Findings: A 9 mm polyp was found at 50 cm proximal to the anus. The polyp was sessile. The polyp was removed with a hot snare. Resection and retrieval were complete. Estimated blood loss was minimal. Multiple small-mouthed diverticula were found in the sigmoid colon. Non-bleeding internal hemorrhoids were found during retroflexion. The hemorrhoids were small. The exam was otherwise without abnormality on direct and retroflexion views. Impression: - One 9 mm polyp at 50 cm proximal to the anus, removed with a hot snare. Resected and retrieved. - Diverticulosis in the sigmoid colon. - Non-bleeding internal hemorrhoids. - The examination was otherwise normal on direct and retroflexion views. Recommendation: - Perform an upper GI endoscopy today. - Await pathology results. - Repeat colonoscopy for surveillance based on pathology results. Hayes Fernandez MD Hayes Fernandez MD 06/03/2024 8:32:25 AM This report has been signed electronically.Hayes Fernandez MD Number of Addenda: 0 Note Initiated On: 06/03/2024 7:54 AM Scope In: Scope Out: Endoscopy Department at [facility] - [address] [place] [phone] Procedure Note Hayes Fernandez MD - 06/03/2024 [facility] GI Patient Name: Valencia Mart Procedure Date: [...] Scope In: Scope Out: Endoscopy Department at [facility] - [address] [place] [phone] us Hayes Fernandez MD GI~PROCEDURE ORDERABLES Final Result * NORA SCREENING DIGITAL (12/01/2022 11:31 AM EDT) Anatomical Region Laterality Modality Mammography 12/01/2022 8:54 AM EDT Narrative 12/01/2022 11:31 AM EDT [facility] Diagnostic Imaging Department [address] [place] [address] Patient: VALENCIA MART /Age/Sex: 1955 - 66 - F Unit#: [id number] Location/Status: SPDIMAM/REG CLI Mnemonic/Ordering Site: [facility] Ordering Physician: ERICA LAGOS MD [facility] Screening Digital - 12/01/22 - 0921 EXAM: [facility] Screening Digital EXAM DATE AND TIME: 12/01/2022 9:21 AM HISTORY: Screening. Personal history of colon carcinoma. Reduction mammoplasty in 1998. COMPARISON: 08/31/21, 03/18/19, 08/09/18, 05/08/17, 04/20/15 TECHNIQUE: CC and MLO views of both breasts were obtained using full field digital mammography. Bilateral digital breast tomosynthesis was performed in the MLO projection. Computer aided detection with GogoCoin 7.2-H and KeyCAPTCHA 3D 3.1 was employed. TISSUE DENSITY: b. There are scattered areas of fibroglandular density. FINDINGS: Reduction mammoplasty sequelae are again noted. No suspicious masses, grouped microcalcifications, or areas of architectural distortion are seen. Benign- appearing microcalcifications are again seen bilaterally, unchanged. Vascular calcification is present. The skin is unremarkable. IMPRESSION: Stable mammographic appearance of the breasts. No evidence of malignancy is seen. A negative mammogram in the presence of a clinically suspicious palpable abnormality does not preclude the possibility of malignancy or alter the indications for biopsy. BI-RADS: Category 2: Benign RECOMMENDATION(S): 1: Routine screening mammogram BILATERAL in 1 year. [address]86, 43411 3342F, 7025F Dictating Physician: MANISHA WALLIS MD Electronically Signed by: MANISHA WALLIS MD Dic Date/Time: 12/01/22 1129 Sign date/Time: 12/01/22 1131 Procedure Note Manisha Wallis MD - 09/01/2023 [facility] Diagnostic Imaging Department [address] [place] [address] Patient: VALENCIA MART D.O.B./Age/Sex: 1955 - - F Unit#: [id number] Location/Status: SPDIMAM/REG CLI Mnemonic/Ordering Site: [facility] Ordering Physician: ERICA LAGOS MD [facility] Scre[facility] Digital - 12/01/22 - 920 EXAM: [facility] Scre[facility] Digital EXAM DATE AND TIME: 12/01/2022 9:21 AM HISTORY: Screening. Personal history of colon carcinoma. Reductionmammoplasty in 1998. COMPARISON: 08/31/21, 03/18/19, 08/09/18, 05/08/17, 04/20/15 TECHNIQUE: CC and MLO views of both breasts were obtained using fullfield digital mammography. Bilateral digital breast tomosynthesis was performedin the MLO projection. Computer aided detection with GogoCoin 7.2-H andKeyCAPTCHA 3D 3.1 was employed. TISSUE DENSITY: b. [...] Routine screening mammogram BILATERAL in 1 year. 46578, 42308 3342F, 7025F Dictating Physician: MANISHA WALLIS MD Electronically Signed by: MANISHA WALLIS MD Dic Date/Time: 12/01/22 1129 Sign date/Time: 12/01/22 1131 us Erica Lagos MD IMG BI PROCEDURES Final Result from Last 3 Months or Most Recently Relevant to Health Maintenance Insurance MEDICARE MEDICAID - [place] Advance Directives Documents on File Type Date Recorded Patient Managing Cognitive Engineer Expl anation Health Care Decision (hx) 04/09/2013 AD BALLARD DIRECTIVE Health Care Decision (hx) 04/09/2013 AD BALLARD DIRECTIVE Health Care Decision (hx) 04/09/2013 AD BALLARD DIRECTIVE Health Care Decision (hx) 04/09/2013 AD BALLARD DIRECTIVE Health Care Decision (hx) 04/09/2013 AD BALLARD DIRECTIVE Health Care Decision (hx) 04/09/2013 AD ABLLARD DIRECTIVE Health Care Decision (hx) 04/09/2013 AD BALLARD DIRECTIVE Health Care Decision (hx) 04/09/2013 AD BALLARD DIRECTIVE Health Care Decision (hx) 04/09/2013 AD BALLARD DIRECTIVE Health Care Decision (hx) 04/09/2013 AD BALLARD DIRECTIVE Care Teams Nuclear Reactor Operator Relationship Specialty Start Date End Date Betsy Clarke NP [address] [place] [address] PCP - General Internal Medicine 05/30/22
== END 2025-02-25 15:15 | disposition home or self-care (01) ==
LOC: HO.HOS 14:45
PROVIDERS: PCP Family Medicine; Visit Provider Orthopaedic Surgery
DX: M25.551 Pain in right hip (principal); M25.552 Pain in left hip; Z96.643 Presence of artificial hip joint, bilateral
CPT/HCPCS: 99213; G2211

== ENCOUNTER → 2025-02-25 14:48 | Outpatient (BNV) | payer MEDICARE, MEDICAID, SELFPAY | PROVIDERS: Visit Provider Radiology Diagnostic Radiology | DX: M76.20 Iliac crest spur, unspecified hip (principal) | CPT/HCPCS: 72170 ==

== ENCOUNTER 2025-07-09 14:30 | Outpatient (AMB) | payer MEDICARE, MEDICAID, SELFPAY ==
--- NOTE | 2025-07-09 14:46 | A.OFFVIS_ITS ---
Vital Signs 07/09/25 14:50 Height 5 ft 3 in Weight 160 lb BMI 28.3 Intake Visit Reasons: Right shoulder pain and weakness Intake Note: Valencia is a 69 year old female right hand domiant who presents with complaints of progressively worsening right shoulder pain and weakness. The patient describes her pain as sharp and severe in nature. Most of the pain is along the lateral aspect of her shoulder. The patient states that her symptoms have gotten worse over the last year in spite of continued non operative treatments. She has tried Tylenol, anti-inflammatory medicines, a home exercise program and physical therapy exercises which gave her minimal relief. She reports difficulty lifting her right hand above shoulder height. She has failed the last 6 weeks of con servative treatment. At this point her right shoulder pain and weakness or interfering with her activities of daily living and her ability to sleep well through the night. Allergies meperidine (From DEMEROL) Allergy (Unknown, Verified 02/25/25 14:57) HIVES tetracycline (TETRACYCLINE) Allergy (Unknown, Verified 02/25/25 14:57) GASTRITIS duloxetine (From Cymbalta) Allergy (Verified 02/25/25 14:57) Unknown irbesartan Allergy (Verified 02/25/25 14:57) Headache levofloxacin (From Levaquin) Allergy (Verified 02/25/25 14:57) Unknown lisinopril Allergy (Verified 02/25/25 14:57) Cough Tetracyclines Allergy (Verified 02/25/25 14:57) Unknown Medication List - Last Reconciled 07/09/25 by Jerry Wiggins MD amitriptyline 10 - 20 mg PO BEDTIME amoxicillin 2,000 mg (4 x 500 mg) PO ONCE cholecalciferol (vitamin D3) (Vitamin D3) 50 mcg PO DAILY cyanocobalamin (vitamin B-12) (Vitamin B-12) 50 mcg PO DAILY dulaglutide (Trulicity) 0.75 mg subcut QWEEK fluticasone propionate 50 mcg/actuation 1 spray intranasal DAILY gabapentin 300 mg PO TID hydrochlorothiazide 25 mg PO DAILY ipratropium bromide 17 mcg/actuation (Atrovent HFA) 2 puffs inhalation QID losartan 25 mg PO DAILY magnesium 400 mg PO DAILY methylprednisolone (Medrol (Leonidas)) PO PER PKG DIR multivitamin 1 tab PO DAILY oxycodone 5 mg PO QID PRN oxycodone 5 mg PO Q6H PRN rosuvastatin 10 mg PO DAILY tizanidine 8 mg PO BEDTIME PRN PFSH Medical History (Updated 07/09/25 @ 15:18 by Jerry Wiggins MD) Diabetes GERD (gastroesophageal reflux disease) Adnexal mass Aortic valve calcification Arthralgia Chronic cervical radiculopathy Migraine Cough Depression Diverticulitis Fibromyalgia Hiatal hernia Hypercholesteremia HTN (hypertension) Anemia Back pain Osteoarthritis Surgical History (Updated 12/02/24 @ 06:13 by Eve Pope RN) Hx of laminectomy Hx of fusion of cervical spine Hx of hysterectomy Hx of breast reduction, elective Hx of bariatric surgery Hx of total hip arthroplasty History of esophagogastroduodenoscopy (EGD) H/O colonoscopy Social History Alcohol intake: current Alcohol intake frequency: holidays/special occasions only Patient Tobacco Use Status: Former Tobacco user Current occupational status: employed 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 Physical Exam Vital Signs: BMI result Body Mass Index 28.3 Extrem Other: Right shoulder examination shows decreased range of motion when compared to her left shoulder, 4+ out of 5 strength with supraspinatus testing, positive impingement signs, tenderness over her acromioclavicular joint, no instability Results Reviewed Results Reviewed: X-rays of the patient's right shoulder show severe acromioclavicular joint narrowing, a type 2 acromion, no acute bony abnormalities Assessment & Plan Assessment & Plan (1) Rotator cuff insufficiency of right shoulder: Code(s): M25.311 - Other instability, right shoulder Category: Medical Plan Ms. Narayan presents with right shoulder pain and weakness due to impingement syndrome and possible rotator cuff tearing. Thus, I will send the patient for an MRI of her right shoulder for further evaluation. I did give her a prescription for a Medrol Dosepak to help with her pain in the meantime. I will see her back following the MRI to discuss the findings and treatment options. Feel free to call me at any time should questions regarding her orthopedic management arise. I spent 20 minutes in reviewing the patient's records and imaging studies, seeing the patient and documenting in the medical record. Orders: Orders XR shoulder RT min 2V 12/10/25 M25.511 - Pain in right shoulder MR shoulder RT wo con Today M25.311 - Other instability, right shoulder Medications: New methylprednisolone (Medrol (Leonidas)) PO PER PKG DIR 21 ea 0RF Coding Level of Care Code Est Pt Level 3 (27253) Add On Problem Visit Only Diagnoses Rotator cuff insufficiency of right shoulder M25.311
[2025-07-09 14:50] VITALS: BMI 28.3
--- OUTSIDE RECORDS SUMMARY | 2025-07-09 22:44 | XMS_ITS | Clinical Summary ---
Author Organization [facility] Address [address] [place] [address] Phone Care Team Providers Care Manufacturing Design Engineer Name Role Phone Erica Esparza MD Primary Care Provider [phone] Allergies Active Allergy Reactions Criticality Noted Date Comments Duloxetine Hcl Nausea And Vomiting 12/07/2017 Levofloxacin Nausea And Vomiting 11/19/2009 Lisinopril 10/10/2019 Meperidine Hives 11/19/2009 Tetracycline 12/07/2017 Medications hydroCHLOROthia zide (HYDRODIURIL) 25 mg tablet Take 1 tablet (25 mg total) by mouth. Active oxyCODONE-aceta minophen (PERCOCET) 5-325 mg per tablet Take 1 [...] mouth 3 (three) times a day. Active levoFLOXacin (LEVAQUIN) 750 mg tablet Take 1 tablet (750 mg total) by mouth 1 (one) time each day for 7 days. 7 tablet 06/25/2025 Encounters Date Type Department Care Team Description 06/27/2025 4:14 PM EST - 06/27/2025 6:49 PM EST Emergency [facility] Emergency [address] [place] [address] Maki Moya MD Rhinovirus infection (Primary Dx); Enterovirus infection; Multifocal pneumonia Discharge Disposition: Home or Self Care 06/25/2025 6:46 PM EST - 06/25/2025 11:49 PM EST Emergency [facility] Emergency [address] [place] [address] Layne Altman MD Mogul, Ashley, MD Multifocal pneumonia (Primary Dx); Fever, unspecified fever cause; Other fatigue; Decreased appetite; Rhinovirus Discharge Disposition: Home or Self Care from Last 3 Months Surgical History Surgery Date Site/Laterality Comments GASTRIC BYPASS 2004 PROCEDURE: FL GASTRIC RSTCV W/BYP W/SM INT RCNSTJ LIMIT ABSRPJ HYSTERECTOMY 1979 PROCEDURE: HISTORICAL HYSTERECTOMY BACK SURGERY 2001 PROCEDURE: HISTORICAL BACK SURGERY; COMMENT: SPINAL FUSION CHOLECYSTECTOMY PROCEDURE: FL CHOLECYSTECTOMY JOINT REPLACEMENT Bilateral hip CERVICAL FUSION [...] on file Sexual Orientation Not on file Last Filed Vital Signs Vital Sign Reading Time Taken Comments Blood Pressure 154/76 06/27/2025 12:43 PM EST Pulse 82 06/27/2025 12:43 PM EST Temperature 36.6 C (97.9 F) 06/27/2025 12:43 PM EST Respiratory Rate 18 06/27/2025 12:43 PM EST Oxygen Saturation 99% 06/27/2025 12:43 PM EST Inhaled Oxygen Concentration - - Weight 73 kg (161 lb) 06/27/2025 12:43 PM EST Height 160 cm (5' 3 ) 06/27/2025 12:43 PM EST Body Mass Index 28.52 06/27/2025 12:43 PM EST Plan of Treatment Health Maintenance Due Date Last Done Comments Diabetes: Annual Foot Exam 1964 Diabetes: Annual Retina Eye Exam 1964 Zoster Vaccines (1 of 2) 2004 Cholesterol Screening (Lipid Panel) 07/02/2022 Falls Risk Assessment 07/02/2022 Hepatitis C Screening 07/02/2022 Medicare Annual Wellness Visit 07/02/2022 Osteoporosis Screening (Bone Density Screening) 07/02/2022 Social Influencers of Health Screening 07/02/2022 Diabetes: Annual Urine Albumin-Creatinine Ratio (uACR) 06/03/2024 Diabetes: Blood Sugar Control Test (HGBA1C) 06/03/2024 Depression Screening 07/31/2024 Breast Cancer Screening 12/01/2024 12/02/19 23, 08/31/2021, 08/09/2018 COVID-19 Vaccine (3 - season) 2025 10/22/2020, 10/01/2020 Pneumococcal Vaccine: 50+ Years (3 of 3 - PCV20 or PCV21) 05/05/2025 05/05/2020, 04/12/2013 Diabetes: Annual GFR (Glomerular Filtration Rate) 06/27/2026 06/27/2025, 06/25/2025 Hypertension/CHF/CAD Annual BMP Blood Test 06/27/2026 06/27/2025, 06/25/2025 RSV Immunization Adult Patients (1 - 1-dose 75+ series) 2029 DTaP,Tdap,and Td Vaccines (4 - Td or Tdap) 10/03/2033 10/04/2023, 12/09/2012, 04/26/2000 Colorectal Cancer Screening: Colonoscopy 03/11/2035 03/11/2025, 06/03/2024 Influenza Vaccine Completed 06/01/2025, , 05/11/2021, Additional history exists HIB Vaccines Aged Out No longer eligi [...] this topic Medical Devices Implanted Type Area Appraisal Coordinator Device Identifier Shelf Expiration Date Model / Serial / Lot Joints Hip Joints Hip Bilatera l: Hip Description:Bilateral hip re placements Procedures Procedure Name Priority Date/Time Associated Diagnosis Comments D-DIMER STAT 06/27/2025 5:05 PM EST TROPONIN I HIGH SENSITIVITY STAT 06/27/2025 3:01 PM EST B-TYPE NATRIURETIC PEPTIDE STAT 06/27/2025 3:01 PM EST PROCALCITONIN STAT 06/27/2025 3:01 PM EST CBC WITH AUTO DIFFERENTIAL STAT 06/27/2025 3:01 PM EST BASIC METABOLIC PANEL STAT 06/27/2025 3:01 PM EST CBC AND DIFFERENTIAL STAT 06/27/2025 3:01 PM EST RESPIRATORY VIRUS PANEL MOLECULAR STUDY STAT 06/27/2025 2:58 PM EST ECG 12-LEAD STAT 06/27/2025 2:51 PM EST XR CHEST 2 VIEWS STAT 06/27/2025 2:46 PM EST ECG ANNOTATED 06/27/2025 CULTURE BLOOD STAT 06/25/2025 10:53 PM EST CULTURE BLOOD STAT 06/25/2025 10:39 PM EST RESPIRATORY VIRUS PANEL MOLECULAR STUDY STAT 06/25/2025 9:[address] CHEST W CONTRAST STAT 06/25/2025 8 :51 PM EST LACTATE, WITH REFLEX STAT 06/25/2025 8:40 PM EST TROPONIN I HIGH SENSITIVITY Timed 06/25/2025 8:40 PM EST CBC WITH AUTO DIFFERENTIAL STAT 06/25/2025 6:39 PM EST B-TYPE NATRIURETIC PEPTIDE STAT 06/25/2025 6:39 PM EST MAGNESIUM STAT 06/25/2025 6:39 PM EST LIPASE STAT 06/25/2025 6:39 PM EST COMPREHENSIVE METABOLIC PANEL STAT 06/25/2025 6:39 PM EST CBC AND DIFFERENTIAL STAT 06/25/2025 6:39 PM EST TROPONIN I HIGH SENSITIVITY Timed 06/25/2025 6:39 PM EST ECG 12-LEAD STAT 06/25/2025 4:59 PM EST EXTERNAL COLONOSCOPY REPORT Routine 03/11/2025 9:10 AM EDT NORA SCREENING DIGITAL Routine 12/01/2022 11:31 AM EDT Encounter for screening mammogram for malignant neoplasm of breast from Last 3 Months or Most Recently Relevant to Health Maintenance Results * D-dimer, quantitative (06/27/2025 5:05 PM EST) Pathologist [facility] D-Dimer, Quant (D-DU) <150 <=230 ng/mL DDU LAB COAGULATION METHOD 06/27/2025 5:48 PM EST [facility] Blood Venous blood specimen / Unknown Venipuncture / Unknown 06/27/2025 5:05 PM EST 06/27/2025 5:29 PM EST Narrative [facility] - 06/27/2025 5:48 PM EST D-Dimer <230 ng/mL (D-Dimer units) is the threshold for exclusion of DVT/PE. D-Dimer may be elevated in: Critically ill, severely infected, trauma patients, DIC, acute CVA, acute [place], unstable angina, AF, old age, , and smoking. D-Dimer may be decreased with: Initiation of heparin therapy and oral anticoagulants. Maki Moya MD LAB BLOOD ORDERABLES Final Res ult [facility] [address] [place] [address], * Troponin I high sensitivity (06/27/2025 3:01 PM EST) Only the most recent of3 resultswithin the time period is included. Pathologist [facility] High Sensitivity Troponin I <3 <=34 ng/L 06/27/2025 4:03 PM EST [facility] Blood Venous blood specimen / Unknown Venipuncture / Unknown 06/27/2025 3:01 PM EST 06/27/2025 3:28 PM EST Phil GUY LAB BLOOD ORDERABLES Final Result [facility] [address] [place] [address], * Procalcitonin (06/27/2025 3:01 PM EST) Pathologist [facility] Procalcitonin 0.04 <=0.05 ng/mL 06/27/2025 4:12 PM EST [facility] Blood Venous blood specimen / Unknown Venipuncture / Unknown 06/27/2025 3:01 PM EST 06/27/2025 3:28 PM EST Narrative [facility] - 06/27/2025 4:12 PM EST Procalcitonin > 2.00 ng/ml: Procalcitonin Levels above 2.00 ng/ml, on the first day of ICU admission represent a high risk for progression to severe sepsis and/or septic shock. Procalcitonin < 0.50 ng/ml: Procalcitonin levels below 0.50 ng/ml on the first day of ICU admission represent a low risk for progression to severe sepsis and/or septic shock. Concentrations <0.5 ng/mL do not exclude an infection, on account of local ized infections (without systemic signs) which can be associated with such low concentrations, or a systemic infection in its initial stages (<6 hours). Furthermore, increased procalcitonin can occur without infection. PCT concentrations between 0.5 and 2.0 ng/mL should be interpreted taking into account the patient's history. It is recommended to retest PCT within 6-24 hours if any concentrations <2.0 ng/mL are obtained. us Phil GUY LAB BLOOD ORDERABLES Final Result [facility] [address] [place] [address], * CBC auto differential (06/27/2025 3:01 PM EST) Only the most recent of2 resultswithin the time period is included. Pathologist [facility] WBC 5.5 4.8 - 10.8 K/mcL LAB HEMETOLOGY METHOD 06/27/2025 3:40 PM [facility] RBC 4.80 3.80 - 4.80 M/mcL LAB HEMETOLOGY METHOD 06/27/2025 3:40 PM [facility] Hemoglobin 13.2 11.5 - 16.0 g/dL LAB HEMETOLOGY METHOD 06/27/2025 3:40 PM [facility] Hematocrit 40.7 35.0 - 47.0 % LAB HEMETOLOGY METHOD 06/27/2025 3:40 PM [facility] MCV 84.1 79.0 - 98.0 FL LAB HEMETOLOGY METHOD 06/27/2025 3:40 PM [facility] MCH 27.3 27.0 - 32.0 pcg LAB HEMETOLOGY METHOD 06/27/2025 3:40 PM [facility] MCHC 32.4 32.0 - 37.0 g/dL LAB HEMETOLOGY METHOD 06/27/2025 3:40 PM [facility] RDW 14.6 11.0 - 15.0 % LAB HEMETOLOGY METHOD 06/27/2025 3:40 PM [facility] Platelets 243 130 - 400 K/mcL LAB HEMETOLOGY METHOD 06/27/2025 3:40 PM [facility] MPV 8.9 7.0 - 11.0 FL LAB HEMETOLOGY METHOD 06/27/2025 3:40 PM [facility] NRBC 0.0 <1.0 % LAB HEMETOLOGY METHOD 06/27/2025 3:40 PM [facility] NRBC Absolute 0.00 <0.10 K/mcL LAB HEMETOLOGY METHOD 06/27/2025 3:40 PM [facility] Neutrophils Relative 59.2 % LAB HEMETOLOGY METHOD 06/27/2025 3:40 PM [facility] Lymphocytes Relative 28.1 % LAB HEMETOLOGY METHOD 06/27/2025 3:40 PM EST [facility] Monocytes Relative 8.0 % LAB HEMETOLOGY METHOD 06/27/2025 3:40 PM [facility] Eosinophils Relative 3.3 % LAB HEMETOLOGY METHOD 06/27/2025 3:40 PM [facility] Basophils Relative 0.9 % LAB HEMETOLOGY METHOD 06/27/2025 3:40 PM [facility] Immature Granulocytes Relative 0.5 % LAB HEMETOLOGY METHOD 06/27/2025 3:40 PM [facility] Neutrophils Absolute 3.27 1.50 - 7.00 K/mcL LAB HEMETOLOGY METHOD 06/27/2025 3:40 PM [facility] Lymphocytes Absolute 1.55 1.00 - 5.00 K/mcL LAB HEMETOLOGY METHOD 06/27/2025 3:40 PM [facility] Monocytes Absolute 0.44 0.20 - 1.00 K/mcL LAB HEMETOLOGY METHOD 06/27/2025 3:40 PM [facility] Eosinophils Absolute 0.18 0.00 - 0.50 K/mcL LAB HEMETOLOGY METHOD 06/27/2025 3:40 PM [facility] Basophils Absolute 0.05 0.00 - 0.20 K/mcL LAB HEMETOLOGY METHOD 06/27/2025 3:40 PM [facility] Immature Granulocytes Absolute 0.03 0.00 - 0.03 K/mcL LAB HEMETOLOGY METHOD 06/27/2025 3:40 PM [facility] Blood Venous blood specimen / Unknown Venipuncture / Unknown 06/27/2025 3:01 PM EST 06/27/2025 3:29 PM EST Adams Liu MD LAB BLOOD ORDERABLES Final Resul t [facility] [address] [place] [address], * B-type natriuretic peptide (06/27/2025 3:01 PM EST) Only the most recent of2 resultswithin the time period is included. Pathologist [facility] BNP 49 <=100 pcg/mL 06/27/2025 4:04 PM [facility] Blood Venous blood specimen / Unknown Venipuncture / Unknown 06/27/2025 3:01 PM EST 06/27/2025 3:28 PM EST Narrative [facility] - 06/27/2025 4:04 PM EST Over the counter supplements containing high doses of biotin may interfere with this assay. If interference is suspected, patients shoud be retested after refraining from biotin supplements for 72 hours. Phil GUY LAB BLOOD ORDERABLES Final Result Performing Organization Address [facility]/ZIP Co de Phone Number [facility] [address] [place] [address], * (ABNORMAL) Basic metabolic panel (06/27/2025 3:01 PM EST) [facility] Sodium 140 133 - 145 mmol/L 06/27/2025 4:04 PM [facility] Potassium 4.3 3.5 - 5.5 mmol/L 06/27/2025 4:04 PM [facility] Chloride 99 96 - 110 mmol/L 06/27/2025 4:04 PM [facility] CO2 31 21 - 32 mmol/L 06/27/2025 4:04 PM [facility] Anion Gap 10 3 - 11 06/27/2025 4:04 PM [facility] Glucose 103(H) 70 - 100 mg/dL 06/27/2025 4:04 PM [facility] BUN 9 5 - 25 mg/dL 06/27/2025 4:04 PM [facility] Creatinine 1.00 0.50 - 1.10 mg/dL 06/27/2025 4:04 PM [facility] eGFR 61 >=60 mL/min/1. 73m2 06/27/2025 4:04 PM [facility] Comment:Calculation based on the Chronic Kidney Disease Epidemiology Collaboration (CKD-EPI) equation refit without adjustment for race. BUN/Creatinine Ratio 9.0 06/27/2025 4:04 PM [facility] Calcium 8.7 8.5 - 10.5 mg/dL 06/27/2025 4:04 PM [facility] Blood Venous blood specimen / Unknown Venipuncture / Unknown 06/27/2025 3:01 PM EST 06/27/2025 3:28 PM EST us Adams Liu MD LAB BLOOD ORDERABLES Final Resul t [facility] [address] [place] [address], [place] [phone] * (ABNORMAL) Respiratory virus panel molecular study (06/27/2025 2:58 PM EST) Only the most recent of2 resultswithin the time period is included. Adenovirus Detection by PCR Not Detected Not Detected LAB MICROBIOLOGY METHOD 06/27/2025 4:30 PM [facility] Influenza A PCR Not Detected Not Detected LAB MICROBIOLOGY METHOD 06/27/2025 4:30 PM [facility] Influenza B PCR Not Detected Not Detected LAB MICROBIOLOGY METHOD 06/27/2025 4:30 PM [facility] Coronavirus 229E Not Detected Not Detected LAB MICROBIOLOGY METHOD 06/27/2025 4:30 PM [facility] Coronavirus HKU1 Not Detected Not Detected LAB MICROBIOLOGY METHOD 06/27/2025 4:30 PM [facility] Coronavirus OC43 Not Detected Not Detected LAB MICROBIOLOGY METHOD 06/27/2025 4:30 PM [facility] Coronavirus NL63 Not Detected Not Detected LAB MICROBIOLOGY METHOD 06/27/2025 4:30 PM [facility] Parainfluenza Virus 1 Not Detected Not Detected LAB MICROBIOLOGY METHOD 06/27/2025 4:30 PM [facility] Parainfluenza Virus 2 Not Detected Not Detected LAB MICROBIOLOGY METHOD 06/27/2025 4:30 PM [facility] Parainfluenza Virus 3 Not Detected Not Detected LAB MICROBIOLOGY METHOD 06/27/2025 4:30 PM [facility] Parainfluenza Virus 4 Not Detected Not Detected LAB MICROBIOLOGY METHOD 06/27/2025 4:30 PM [facility] RSV PCR Not Detected Not Detected LAB MICROBIOLOGY METHOD 06/27/2025 4:30 PM [facility] Human Metapneumovirus A and B Not Detected Not Detected LAB MICROBIOLOGY METHOD 06/27/2025 4:30 PM [facility] Rhinovirus/Entero virus Detected(A ) Not Detected LAB MICROBIOLOGY METHOD 06/27/2025 4:30 PM [facility] Bordetella pertussis Not Detected Not Detected LAB MICROBIOLOGY METHOD 06/27/2025 4:30 PM [facility] Bordetella parapertussis Not Detected Not Detected LAB MICROBIOLOGY METHOD 06/27/2025 4:30 PM [facility] Mycoplasma pneumo by PCR Not Detected Not Detected LAB MICROBIOLOGY METHOD 06/27/2025 4:30 PM [facility] Chlamydia pneumoniae Not Detected Not Detected LAB MICROBIOLOGY METHOD 06/27/2025 4:30 PM [facility] SARS COV-2 Not Detected Not Detected LAB MICROBIOLOGY METHOD 06/27/2025 4:30 PM EST [facility] Swab Nasopharyngeal structure / Unknown Non-blood Collection / Unknown 06/27/2025 2:58 PM EST 06/27/2025 3:30 PM EST Narrative [facility] - 06/27/2025 4:30 PM EST Testing was performed using the [employer] Respiratory Pathogen PCR Assay. All results must be correlated with the clinical findings. Results should not be used as the sole basis for diagnosis. False Negative results may occur from the presence of sequence variants in the region targeted by the assay or the presence of inhibitors. Results may be affected by concurrent antiviral/antimicrobial therapy or levels of organisms that are below the limit of detection. Phil GUY LAB MICROBIOLOGY - GENERAL ORDERABLES Final Result Performing Organization Address City/[facility]/ZIP Co de Phone Number [facility] [address] [place] [address], [place] [phone] * ECG 12 lead (06/27/2025 2:51 PM EST) Only the most recent of2 resultswithin the time period is included. Ventricular Rate ECG 68 BPM GEMUSE Atrial Rate 68 BPM GEMUSE P-R Interval 130 ms GEMUSE QRS Duration 76 ms GEMUSE Q-T Interval 418 ms GEMUSE QTc 444 ms GEMUSE P Wave [place] 52 degrees GEMUSE R [place] 11 degrees GEMUSE T [place] 45 degrees GEMUSE ECG Interpretation Normal sinus rhythm Normal ECG When compared with ECG of 25-JUN-2025 16:59, No significant change was found Confirmed by MARISOL GUILLAUME ([id number]) on 06/28/2025 10:05:50 AM GEMUSE 06/27/2025 2:51 PM EST 06/28/2025 10:05 AM EST Adams Liu MD ECG ORDERABLES Final Result Performing Organization Address [facility]/ZIP Co de Phone Number GEMUSE * XR Chest 2 Views (06/27/2025 2:46 PM EST) Anatomical Region Laterality Modality Body Radiographic Cheryl ging 06/27/2025 3:14 PM EST Impressions 06/27/2025 3:17 PM EST Impression: Subtle groundglass infiltrates in the right lung showing no apparent worsening since the 06/25/25 CT. Telejudi GUY ([id number]) -------- FINAL REPORT -------- Dictated By: Manisha Wallis Dictated Date: 06/27/2025 15:14 ET Assigned Physician: Manisha Wallis Reviewed and Electronically Signed By: Manisha Wallis Signed Date: 06/27/2025 15:17 ET Workstation ID: [id number] Transcribed By: Self Edit Transcribed Date: 06/27/2025 15:14 ET Narrative 06/27/2025 3:17 PM EST History: Dyspnea and cough. Pneumonia on recent thoracic CT, with symptoms not improving. Comparison: Thoracic CT 06/25/25, 2 view chest 10/08/20 Findings: PA and lateral views. There are subtle patchy groundglass infiltrates in the right upper and lower lung, consistent with the recent CT findings. The subtle juxtapleural groundglass infiltrate in the left lower lobe noted on the CT is not visible here, potentially due to its small size. No apparent worsening of disease is identified. The costophrenic angles are sharp. The pulmonary vascularity is within normal limits. The cardiac silhouette remains normal in size. A rounded structure posterior to the heart at the base of the thorax is consistent with a known hiatal hernia. Upper abdominal surgical clips are again seen and cervical spine surgical hardware consistent with prior anterior discectomy and fusion is again noted. Procedure Note Manisha Wallis MD - 06/27/2025 History: Dyspnea and cough. Pneumonia on recent thoracic CT, with symptomsnot improving. Comparison: Thoracic CT 06/25/25, 2 view chest 10/08/20 Findings: PA and lateral views. There are subtle patchy groundglass infiltrates inthe right upper and lower lung, consistent with the recent CT findings.The subtle juxtapleural groundglass infiltrate in the left lower lobenoted on the CT is not visible here, potentially due to its small size. Noapparent worsening of disease is identified. The costophrenic angles aresharp. The pulmonary vascularity is within normal limits. The cardiac silhouette remains normal in size. A rounded structureposterior to the heart at the base of the thorax is consistent with aknown hiatal hernia. Upper abdominal surgical clips are again seen and cervical spine surgicalhardware consistent with prior anterior discectomy and fusion is againnoted. IMPRESSION: Impression: Subtle groundglass infiltrates in the right lung showing no apparentworsening since the 06/25/25 CT. Telejudi GUY ([id number]) -------- FINAL REPORT -------- Dictated By: Manisha Wallis Dictated Date: 06/27/2025 15:14 ET Assigned Physician: Manisha Wallis Reviewed and Electronically Signed By: Manisha Wallis Signed Date: 06/27/2025 15:17 ET Workstation ID: [id number] Transcribed By: Self Edit Transcribed Date: 06/27/2025 15:14 ET us Phil GUY IMG XR PROCEDURES Final Res ult * ECG-Annotated (06/27/2025) us Provider Onbase MD ECG ORDERABLES Final Result * Blood Culture, Peripheral Draw #2 (06/25/2025 10:53 PM EST) Only the most recent of2 resultswithin the time period is included. Culture, Blood No growth at 5 days 07/01/2025 12:01 AM EST [facility] Blood Venous blood specimen / Unknown Venipuncture / Unknown 06/25/2025 10:53 PM EST 06/25/2025 11:00 PM EST Josefa Matute MD LAB MICROBIOLOGY - GENERAL ORDER CONNER Final Result [facility] [address] [place] [address], [place] [phone] * CT Chest w Contrast (06/25/2025 8:51 PM EST) Anatomical Region Laterality Modality Body Computed Tomogra phy 06/25/2025 10:2 6 PM EST Impressions 06/25/2025 10:26 PM EST 1. Patchy ground-glass and interstitial infiltrates of the right upper lobe, right middle lobe, and right greater than left lung bases. Cluster of pulmonary nodules within the left upper lobe measuring up to 4-5 mm just anterior to the fissure. Overall findings are most consistent with infectious/inflammatory process including multifocal pneumonia. Recommend continued follow-up after appropriate therapy to ensure resolution. 2. Coronary atherosclerosis. 3. Moderate hiatal hernia, gastric bypass. 4. Hepatic steatosis. This document has been electronically signed by: Douglas Steele DO on 06/25/2025 22:26:50 Narrative 06/25/2025 10:26 PM EST INDICATION: eval infection CT chest with IV contrast. Comparison: None provided Findings: The thyroid is unremarkable. Normal caliber of the thoracic aorta. Atherosclerosis of the thoracic aorta. The heart is normal size. Coronary atherosclerosis Small lymph nodes in the mediastinum. Patchy ground-glass and interstitial opacities of the right upper lobe, right middle lobe, and right greater than left lung bases. Cluster of pulmonary nodules within the left upper lobe measuring up to 4-5 mm just anterior to the fissure. Overall findings are most consistent with infectious/inflammatory process including multifocal pneumonia. Recommend continued follow-up after appropriate therapy to ensure resolution. Degenerative changes of the thoracic spine. Moderate hiatal hernia. Gastric bypass. Hepatic steatosis. Cholecystectomy Procedure Note Douglas Steele MD - 06/25/2025 INDICATION: eval infection CT chest with IV contrast. Comparison: None provided Findings: The thyroid is unremarkable. Normal caliber of the thoracic aorta. Atherosclerosis of the thoracic aorta. The heart is normal size. Coronary atherosclerosis Small lymph nodes in the mediastinum. Patchy ground-glass and interstitial opacities of the right upper lobe, right middle lobe, and right greater than left lung bases. Cluster of pulmonary nodules within the left upper lobe measuring up to 4-5 mm just anterior to the fissure. Overall findings are most consistent with infectious/inflammatory process including multifocal pneumonia.Recommend continued follow-up after appropriate therapy to ensure resolution. Degenerative changes of the thoracic spine. Moderate hiatal hernia. Gastric bypass. Hepatic steatosis. Cholecystectomy IMPRESSION: 1. Patchy ground-glass and interstitial infiltrates of the right upper lobe, right middle lobe, and right greater than left lung bases. Cluster of pulmonary nodules within the left upper lobe measuring up to 4-5 mm just anterior to the fissure. Overall findings are most consistent with infectious/inflammatory process including multifocal pneumonia.Recommend continued follow-up after appropriate therapy to ensure resolution. 2. Coronary atherosclerosis. 3. Moderate hiatal hernia, gastric bypass. 4. Hepatic steatosis. This document has been electronically signed by: Douglas Steele DO on 06/25/2025 22:26:50 us Layne Altman MD IMG CT PROCEDURES Final Result * Lactate, with Reflex (06/25/2025 8:40 PM EST) Pathologist [facility] LACTIC ACID 1.0 0.4 - 2.0 mmol/L 06/25/2025 9:21 PM EST [facility] Blood Venous blood specimen / Unknown Venipuncture / Unknown 06/25/2025 8:40 PM EST 06/25/2025 8:52 PM EST us Layne Altman MD LAB BLOOD ORDERABLES Final Resul t Performing Organization Address City/[facility]/ZIP Co de Phone Number [facility] [address] [place] [address], [place] [phone] * Magnesium (06/25/2025 6:39 PM EST) Pathologist [facility] Magnesium 2.1 1.9 - 2.6 mg/dL 06/25/2025 7:29 PM EST [facility] Blood Venous blood specimen / Unknown Venipuncture / Unknown 06/25/2025 6:39 PM EST 06/25/2025 6:49 PM EST us Layne Altman MD LAB BLOOD ORDERABLES Final Resul t Performing Organization Address City/[facility]/ZIP Co de Phone Number [facility] [address] [place] [address], [place] [phone] * Lipase (06/25/2025 6:39 PM EST) Lipase 20 12 - 53 unit/L 06/25/2025 7:29 PM [facility] Blood Venous blood specimen / Unknown Venipuncture / Unknown 06/25/2025 6:39 PM EST 06/25/2025 6:49 PM EST us Layne Altman MD LAB BLOOD ORDERABLES Final Resul t [facility] [address] [place] [address], * (ABNORMAL) Comprehensive metabolic panel (06/25/2025 6:39 PM EST) Sodium 134 133 - 145 mmol/L 06/25/2025 7:29 PM [facility] Potassium 4.3 3.5 - 5.5 mmol/L 06/25/2025 7:29 PM [facility] Chloride 95(L) 96 - 110 mmol/L 06/25/2025 7:29 PM [facility] CO2 29 21 - 32 mmol/L 06/25/2025 7:29 PM [facility] Anion Gap 10 3 - 11 06/25/2025 7:29 PM [facility] Glucose 218(H) 70 - 100 mg/dL 06/25/2025 7:29 PM [facility] BUN 14 5 - 25 mg/dL 06/25/2025 7:29 PM [facility] Creatinine 1.03 0.50 - 1.10 mg/dL 06/25/2025 7:29 PM [facility] eGFR 59(L) >=60 mL/min/1. 73m2 06/25/2025 7:29 PM [facility] Comment:Calculation based on the Chronic Kidney Disease Epidemiology Collaboration (CKD-EPI) equation refit without adjustment for race. BUN/Creatinine Ratio 13.6 06/25/2025 7:29 PM [facility] Calcium 9.2 8.5 - 10.5 mg/dL 06/25/2025 7:29 PM [facility] AST (SGOT) 23 10 - 42 unit/L 06/25/2025 7:29 PM [facility] ALT (SGPT) 26 10 - 60 unit/L 06/25/2025 7:29 PM [facility] Alkaline Phosphatase 90 42 - 121 unit/L 06/25/2025 7:29 PM [facility] Total Protein 6.6 6.0 - 8.0 g/dL 06/25/2025 7:29 PM [facility] Albumin 4.2 3.2 - 5.0 g/dL 06/25/2025 7:29 PM [facility] Total Bilirubin 0.6 0.0 - 1.4 mg/dL 06/25/2025 7:29 PM [facility] Blood Venous blood specimen / Unknown Venipuncture / Unknown 06/25/2025 6:39 PM EST 06/25/2025 6:49 PM EST Layne Altman MD LAB BLOOD ORDERABLES Final Resul t [facility] [address] [place] [address], * External Colonoscopy Report (03/11/2025 9:10 AM EDT) Anatomical Region Laterality Modality Endoscopy Historical Provider GI~PROCEDURE ORDERABLES F inal Result * NORA SCREENING DIGITAL (12/01/2022 11:31 AM EDT) Anatomical Region Laterality Modality Mammography 12/01/2022 8:54 AM EDT Narrative 12/01/2022 11:31 AM EDT [facility] Diagnostic Imaging Department [address] [place] [address] Patient: SABAS MART /Age/Sex: 1955 - 66 - F Unit#: [id number] Location/Status: [facility] CLI Mnemonic/Ordering Site: [facility] Ordering Physician: ERICA ESPARZA MD Nora Screening Digital - 12/01/22920 EXAM: [facility] Screening Digital EXAM DATE AND TIME: 12/01/2022 9:21 AM HISTORY: Screening. Personal history of colon carcinoma. Reduction mammoplasty in 1998. COMPARISON: 08/31/21, 03/18/19, 08/09/18, 05/08/17, 04/20/15 TECHNIQUE: CC and MLO views of both breasts were obtained using full field digital mammography. Bilateral digital breast tomosynthesis was performed in the MLO projection. Computer aided detection with [employer] 7.2-H and [employer] 3D 3.1 was employed. TISSUE DENSITY: b. [...] Routine screening mammogram BILATERAL in 1 year. [id number], [id number] 3342F, 5909F Dictating Physician: MANISHA WALLIS MD Electronically Signed by: MANISHA WALLIS MD Dic Date/Time: 12/01/22 1129 Sign date/Time: 12/01/22 1131 Procedure Note Manisha Wallis MD - 09/01/2023 [facility] Diagnostic Imaging Department [address] [place], [place] [id number] Patient: BARRONSABAS M /Age/Sex: 1955 - 66 - F Unit#: [id number] Location/Status: [facility] Mnemonic/Ordering Site: [facility] Ordering Physician: ERICA ESPARZA MD [facility] Screening Digital - 12/01/22 - 920 EXAM: [facility] Screening Digital EXAM DATE AND TIME: 12/01/2022 9:21 AM HISTORY: Screening. Personal history of colon carcinoma. Reductionmammoplasty in 1998. COMPARISON: 08/31/21, 03/18/19, 08/09/18, 05/08/17, 04/20/15 TECHNIQUE: CC and MLO views of both breasts were obtained using fullfield digital mammography. Bilateral digital breast tomosynthesis was performedin the MLO projection. Computer aided detection with [employer] 7.2-H and[employer]CAD [employer] AI 3D 3.1 was employed. TISSUE DENSITY: b. [...] Routine screening mammogram BILATERAL in 1 year. 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
--- OUTSIDE RECORDS SUMMARY | 2025-07-09 22:44 | XMS_ITS | Data Portability ---
Author Organization [place] [facility] Address [address] [place] [address] Care Team Providers Care Sales Floor Manager Name Role Phone HILDA CRUZ, TRISTEN Primary Care Provider [phone] Assessment Encounter Date Assessment Date Assessment LastModified [...] to 2 weeks she can certainly take [id number]-[id number]-[id number] pain medication for symptomatic relief as well [...] eral, 2 or 3 view 023 10/13/19 [email or web address] [facility], [address], [facility] [address], [place], [address], 3 07:57:44 Medication Orders None record ed. [...] Name and Address Organization Details Recorded Time Problem 20344141 Active No known active problems Not Available [employer] 5 00:28:42 Strain of muscle of left groin region [id number] 59413 Active 2022 ISIAH FERREIRA PA-C [address] [facility] [address], [place], [address] , [place] [facility], [facility] 3 15:19:32 Problem Notes None recorded. Procedures Surgical History Date Name Laterality Status Provider Name and Address Organization Details Recorded Time 04/08/20 13 arthroplasty of right hip joint completed Briseida Gleason [facility] P 10/12/2022 14:38:55 05/02/20 11 total replacement of left hip joint completed Briseida Gleason [facility] 10/12/2022 14:40:10 lumbar laminectomy and excision of intradural spinal lesion completed Briseida Gleason [facility] 10/12/2022 14:40:39 primary fusion of cervical spine completed Briseida Gleason [facility] 10/12/2022 14:40:52 bypass of stomach completed Briseida Gleason [facility] 10/12/2022 14:41:25 hysterectomy completed Briseida Gleason [facility] 10/12/2022 14:41:37 cholecystectomy completed Briseida Gleason [facility] 10/12/2022 14:41:56 Imaging Results None recorded. Procedure Notes None recorded. Medical Equipment None Reported. Allergies Allergen ID Allergen Name Allergen Category Reaction Reaction Severity Criticality Documentation Date Start Date Code Code System Note Provider Name and Address Organization Details Recorded Time 941483 meperidin e medicatio n Not available Not available Not available 04/22/20252017 6754 RxNorm Not Available [facility] 5 01:28:36 062752 duloxetin e hydrochlo ride medicatio n Not available Not available Not available 04/22/20252017 88976 0 RxNorm Not Available [facility] 5 01:28:37 864663 lisinopri l medicatio n Not available Not available Not available 04/22/20252019 15462 RxNorm Not Available [facility] 5 01:28:37 235 Demerol medicatio n Not available Not available Not available 10/12/2022 29329 1 RxNorm Briseida Gleason null, [place] [facility], [facility] 3 14:34:56 236 tetracycl ine medicatio n Not available Not available Not available 10/12/2022 59087 RxNorm Briseida Gleason null, [place] [facility] 3 14:35:04 237 Cymbalta medicatio n Not available Not available Not available 10/12/2022 10921 4 RxNorm Briseida Gleason null, [place] [facility] 3 14:35:12 Medications Name Sig Start [...] Available Not Available tizanidine 4 mg tablet Take 4 mg by mouth daily. active Not Available Not Available No t Available FreeStyle Lancets 28 gauge USE DIRECTED TO TEST BLOOD GLUCOSE DAILY active Not Available Not Available No t Available prednisone 20 mg tablet TAKE 3 TABLETS BY MOUTH DAILY active Not Available Not Available No t Available amlodipine 2.5 mg tablet Take 2.5 mg by mouth daily. active Not Available Not Available No t Available sulfamethox azole 800 mg-trimetho prim 160 mg tablet active Not Available Not Available Not Available amoxicillin 500 mg tablet Take 4 tabs 1 hour prior to dental appointme nt, colonosco py or surgical procedure 2021 active Not Available Not Available Not Avai lable oxycodone-a cetaminophe n 5 mg-325 mg tablet Take 1 tablet by mouth daily as needed. for pain 2017 active Not Available Not Available Not Avai lable amitriptyli ne 10 mg tablet TAKE 1 TO 2 TABLETS BY MOUTH EVERY DAY AT BEDTIME active Not Available Not Available No t Available baclofen 10 mg tablet Take 10 mg by mouth 2 (two) times a day as needed. 10/14 completed Not Available Not Available Not Available methylpredn isolone acetate 40 mg/mL suspension for injection 02/13 completed Not Available Not Available Not Available gabapentin 300 mg capsule Take 300 mg by mouth 3 (three) times a day. active Not Available Not Available No t Available triamterene 37.5 mg-hydrochl orothiazide 25 mg tablet take 1 tablet by mouth daily 10/14 completed Not Available Not Available Not Available codeine 10 mg-guaifene sin 100 mg/5 mL oral liquid TAKE 5 ML BY MOUTH EVERY 4 HOURS FOR 7 DAYS NEEDED FOR COUGH active Not Available Not Available No t Available hydrochloro thiazide 25 mg tablet Take 25 mg by mouth daily. active Not Available Not Available No t [...] Available Not Available No t Available lidocaine (PF) 10 mg/mL (1 %) injection solution 12/07 completed Not Available Not Available Not Available Pulmicort Flexhaler 90 mcg/actuati on breath activated INHALE 2 PUFFS BY MOUTH TWICE DAILY NEEDED FOR COUGH active Not Available Not Available No t Available FreeStyle Lite Meter kit USE TO TEST BLOOD SUGAR DAILY active Not Available Not Available No t Available FreeStyle Lite Strips USE DIRECTED FOR TYPE 2 DM. TEST DAILY active Not Available Not Available No t Available cholecalcif nam (vitamin D3) 50 mcg (2,000 unit) capsule Take 2,000 Units by mouth daily. active Not Available Not Available No t [...] Updated DateTime 10/12/2022 160.02 cm 30.1 kg/m2 39554.[address] [facility] 10/12/2022 14:36:07 Social History None recorded. [...] Diagnosis SNOMED-CT Code Diagnosis ICD10 Code Diagnosis IMO Codes Diagnosis Note [address]Y [address] [place] [address] 10/12/2022 14:25:34 10/12/2022 15:12:11 Pain of left hip joint 8534343328 03284 M25.552 Strain of muscle of left groin region 3886137948 4082809 S76.012A Health Concerns Section Related Observation LastModified by Organization Detai ls LastModified Time None Recorded Concern Status LastModified by Organization Details LastModified Time None Recorded Advance Directives Directive None Recorded Payers Insurance Date Sequence Insurance Name Policy Number Policy De Leon Covered Member ID De Leon Member ID Guarantor Name 10/12/2022 1 MEDICARE B-[place]: [employer] MEDICARE - [facility] Valencia Narayan [id number] Valencia Narayan 12/09/2022 2 [place]: [id number] [facility] Valencia Narayan [id number] Valencia Narayan 10/17/2022 MEDIC[place] B[place] [employer] Valencia Narayan [id number] Valencia Narayan Notes Date Note Type Note [...] Dr. Wiggins on 05/02/2011 ISIAH FERREIRA PA-C [address] [place] [address], [id number], [place] [facility] 10/12/2022 15:20:12 OBGyn Episode No OBEpisode recorded.
--- OUTSIDE RECORDS SUMMARY | 2025-07-09 22:44 | XMS_ITS | Clinical Summary ---
Author Organization [facility] Prior to 12/28/[address] [place] [address] Care Team Providers Care Locomotive Mechanic Apprentice Name Role Phone Betsy Clarke NP Primary [...] age to complete this topic Care Teams Locomotive Mechanic Apprentice Relationship Specialty Start Date End Date Betsy Clarke NP [address] [place] [address] PCP - General Gerontology 10/10/19
== END 2025-07-09 15:15 | disposition home or self-care (01) ==
LOC: HO.HOS 14:30
PROVIDERS: Visit Provider Orthopaedic Surgery
DX: M25.311 Other instability, right shoulder (principal)
CPT/HCPCS: 99213; G2211

== ENCOUNTER 2025-07-09 14:31 | Outpatient (REF) | payer MEDICARE, MEDICAID, SELFPAY ==
--- NOTE | ~2025-07-09 | XR_ITS ---
EXAMINATION: XR SHOULDER, RIGHT CLINICAL INFORMATION: M25.511 - Pain in right shoulder COMPARISON: None available. TECHNIQUE: Two views of the right shoulder. FINDINGS: No acute fracture, dislocation or suspicious bony lesion is identified Mild acromioclavicular arthritis. Abnormal soft tissue calcification. No radiopaque foreign body. XR/XR shoulder RT min 2V IMPRESSION: Mild acromioclavicular arthritis Electronically signed by: Lev Reese MD 07/10/2025 11:27 AM [place]
--- OUTSIDE RECORDS SUMMARY | 2025-07-10 22:09 | XMS_ITS | Data Portability ---
Author Organization KEM Jose Juan Hodges [facility], [facility] Address [address] [place] [address] Care Team Providers Care Rubber Belt Splicer Name Role Phone ERICA ESPARZA Primary Care Provider [phone] Assessment Encounter Date Assessment Date Assessment LastModified by Organization Details LastModified Time 09/26/2024 09/26/2024 I am seeing the patient today under the supervision of giovanny who was available but who did not see the patient. HPI: Patient presents today regarding their R knee sp fall. They have had difficulty up and down stairs sitting standing. Problems ambulating. Tega-tlv-tkvmuse medications are helping somewhat but not significantly. Pain is constant aching sometimes sharp pain with giving out sensations. Past family, medical, social history and review of systems has been reviewed, updated and is located in the patient s chart. Examination: The patient is well [...] is noted. mild lateral ligamentous laxity. Negative Néstor s . Calf is supple and nontender. [...] conservative of systems icing and elevation and gxam-uen-lgqijsa medications. They will follow up with us [...] for this problem on an as-needed basis. [email or web address] Not available 12/11/2024 12:20:25 Plan of Treatment Reminders Order Date Submit Date Provider Last Modified By Organization Details Last Modified Time Details Appointments None recorded. Lab None recorded. Referral None recorded. Procedures None recorded. Surgeries None recorded. Imaging XR, knee, 4 or more view - UC 1 right knee 4v 2024 025 [email or web address] [facility], [address], [address], [place], [address], 5 14:07:11 MRI, knee, w/o contrast - mri right knee - eval ? MMI 2024 025 [facility] ([facility]), [address], [place], [address], 5 15:18:13 XR, elbow, 3 or more view - rm 120 3v elbow 2023 024 [email or web address] [facility], [address], [address], [place], [address], 4 10:34:00 Medication Orders None recorded. Patient TargetsNo targets recorded. Patient InstructionsNo instructions recorded. Reason for Referral None Reported. Results Created Date Observation Date Name Description Value Unit Range Abnormal Flag Note LastModifiedBy Organization Detail LastModifiedTime 11/09/19 24 11/08/2023 rhyth m strip , EKG* No observ ation record ed. [facility] - [address], [place], [address], 11/10/2023 13:30:20 05/06/20 24 05/06/2024 XR, elbow , 3 or more view [email or web address] ?Encry pted=s hAaTro YD8dLq bEUv6g %2BXZw aYqtaq 0bqfl% 2Fg9IQ a4ajBk vP9nXo QUaueC m3YtLR FvZl JJ8mAn HZtai3 4p8702 AC0Kqa 36HVqq mKiQtr MwF INTERFACE [facility] [address], [place], [address], 05/06/2024 09:22:26 05/06/20 24 05/06/2024 XR, elbow , 3 or more view [email or web address] ?Encry pted=s hAaTro YD8dLq bEUv6g %2BXZw aYqtaq 0bqfl% 2Fg9IQ a4ajBk vP9nXo QUaueC m3YtLR FvZl JJ8mAn HZtai3 4a0715 AC0Kqa 36HVqq mKiQtr MwF INTERFACE [facility] [address] [facility] [address], [place], [address], 05/06/2024 09:22:29 09/26/19 25 09/26/2024 XR, knee, 4 or more view [email or web address] ?Encry pted=s hAaTro YD8dLq bEUv6g %2BXZw aYqtaq 0bqfl% 2Fg9IQ a4ajBk vP9nXo QUaueC m3YtLR FvZlgJ JJ8mAn HZtai3 4d8157 AC0Kqb XmMWae vKiQtr MwF INTERFACE [facility] [address], [place], [address], 09/26/2024 10:56:44 09/26/19 25 09/26/2024 XR, knee, 4 or more view [email or web address] ?Encry pted=s hAaTro YD8dLq bEUv6g %2BXZw aYqtaq 0bqfl% 2Fg9IQ a4ajBk vP9nXo QUaueC m3YtLR FvZlgJ JJ8mAn HZtai3 1u1909 AC0Kqb XmMWae vKiQtr MwF INTERFACE [facility] [address], [place], [address], 09/26/2024 10:56:47 10/03/19 25 10/01/2024 MRI, knee, w/o contr ast [facility] Access ion Number : [id number] Patiolamide t Name: Valencia Comer Record Number : [id number] Date of : 1955 Date of Exam: 2024 Referr ing Physic carl: [facility] [address], [address] [facility], [facility] s [address] Exam: MR Knee (C-) CPT 40129 - Right Room Descri ption: [facility] Pion 3T MRI right knee Histor y: Pain Findin gs: Medial menisc us slope runner ior root avulsi on. Body of the [...] caudal . Impres yanira: Medial menisc us slope runner ior root avulsi on. Body of the medial menisc us is sublux ed slight ly into the medial gutter . Small margin al osteop hytes in the medial compar tment. Mitchell' s cyst. Electr onical ly Signed By: Myrna Clarke MD [email or web address] [facility] ([facility]) [address], [place], [address], 10/02/2024 16:37:14 Result Notes Documentation Provider Name and Address Organization Details Recorded Time Xr, Elbow, 3 Or More View : [email or web address] Encrypted=lgFyPjrHR7pSjoF Uv6g%5SNSteRqwjq1pvlz%2Fg 0OTc9cgOyyR2hGsXOakqVy6Hs VVDjIjsKQI3uDtJNdjt08y561 4LO6Vea50EOgfhXoCipZjB Not Available [facility] 05/06/2024 09:22:27 Xr, Elbow, 3 Or More View : [email or web address] Encrypted=guPsJvsLV8yVbxO Uv6g%3PVGrnYyyor8cknm%2Fg 6ALq6tnPpnV1fRtOOxugDt1Gd UZOsMgvEON1hWsVLyfh75n128 0FT2Yuz16YZldrNyFosBgC Not Available [facility] 05/06/2024 09:22:29 Xr, Knee, 4 Or More View : [email or web address] Encrypted=pwEwHyiPZ5eCaxE Uv6g%0GQFddOhamh1qxep%2Fg 7VPp0tkRxcC8nGtMYngfLi5Lb RIRfBujHBH3dLlRCrgz11n930 7XC8RkhJgCHuaoAsUldDrP Not Available [facility] 09/26/2024 10:56:45 Xr, Knee, 4 Or More View : [email or web address] Encrypted=mhAmKepJX2bXrcH Uv6g%9ICOihBtnrb9efej%2Fg 0RJg0huUxmW5gCkKJcuuSx2Ff WKXsLvgYFH4xFvSGsda78e236 2RI3GenLmBYybcEwOtpLnM Not Available [facility] 09/26/2024 10:56:47 Mri, Knee, W/o Contrast : [facility] Accession Number: [id number] Patient Name: Valencia Narayan Date of : 1955 Date of Exam: 10-01-2024 Referring Physician: Luiz Mahtews [facility]) [address] [place], [place] [address] Exam: MR Knee (C-) CPT 99303 - Right Room Description: [facility] 3T MRI right knee History: Pain Findings: Medial meniscus posterior root avulsion. Body of the medial meniscus is subluxed slightly into the medial gutter. Small marginal osteophytes in the medial compartment. Lateral meniscus is intact The ACL and PCL are intact The MCL is intact The LCL complex including the biceps femoris, popliteus and fibular collateral ligaments are intact The medial and lateral patellar retinacula are intact. The extensor mechanism is intact. Mitchell's cyst measures approximately 2.5 cm AP by 5 cm craniocaudal. Impression: Medial meniscus posterior root avulsion. Body of the medial meniscus is subluxed slightly into the medial gutter. Small marginal osteophytes in the medial compartment. Mitchell's cyst. Electronically Signed By: Phil Mathews PA-C [address], [place], [address], [facility] 10/02/2024 16:37:14 Problems Name Problem SNOMED Code Status Onset Date Resolution Date Notes Provider Name and Address Organization Details Recorded Time No complaint s 803927607 Active Status: 'I'; Not Available [facility] 09:20:23 Bilateral carpal tunnel syndrome 581935541528 65823 Active 2016 Problem Code: G56.03; Problem Code Type: ICD-10; Status: 'A'; Not Available [facility] 11:42:30 Trigger finger of right hand 644415439102 18696 Active 2017 Problem Code: M65.331; Problem Code Type: ICD-10; Status: 'A'; Not Available [facility] 11:42:30 Idiopathi c osteoarth ritis 572499574 Active 2017 Problem Code: M19.031; Problem Code Type: ICD-10; Status: 'A'; Not Available [facility] 11:42:29 Problem Notes None recorded. Procedures Surgical History Date Name Laterality Status Provider Name and Address Organization Details Recorded Time 12/12/19 25 Trigger Finger Kenalog Injection completed Shruti Huerta MD [address] [place] [address], [address], [facility] 12/11/2024 11:30:10 05/06/20 24 Epicondylitis Celestone 1cc Injection, L/R completed Joie Lopez PA-C [address] [facility], [place], [address], [facility] 05/06/2024 10:07:11 05/06/20 24 Medial Epicondylitis Celestone 1cc Injection, L/R completed Joei Lopez PA-C [address] [place] [address], [address], [facility] 05/06/2024 10:07:03 Imaging Results None recorded. Procedure Notes None recorded. Medical Equipment None Reported. Allergies Allergen ID Allergen Name Allergen Category Reaction Reaction Severity Criticality Documentation Date Start Date Code Code System Note Provider Name and Address Organization Details Recorded Time 30975 Demerol medicatio n Not available Not available Not available 10/02/20232008 84888 1 RxNorm Aller gyRea ction : 'Skin React ion'; Not Available [facility] 14:47:15 91175 Cymbalta medicatio n Not available Not available Not available 10/02/20232016 63611 4 RxNorm Aller gyNam e: 'Cymb stanislav Cpep' ; Not Available [facility] 4 14:47:15 03864 tetracycl ine hydrochlo ride medicatio n Not available Not available Not available 10/02/20232022 50956 6 RxNorm Not Available [facility] 4 14:47:15 49979 lisinopri l medicatio n Not available Not available Not available 10/02/20232022 17230 RxNorm Not Available [facility] 4 14:47:15 Medications Name Sig Start [...] Updated DateTime 12/11/2024 160.02 cm 29.2 kg/m2 97990.74 g SAVITA PENA [place] - [facility] 12/11/2024 11:12:50 Date Recorded Body height Body mass index (BMI) Body weight Provider Name and Address Organization Details Last Updated DateTime 05/06/2024 160.02 cm 29.1 kg/m2 46785.15 g MARICRUZ MIGUEL [place] - [facility] 05/06/2024 09:18:29 Social History None recorded. Functional Status None recorded. Mental Status None recorded. Family History Nothing Reported. Medical History No medical history recorded. Gynecological HistoryNo gynecological history recorded. Obstetrics History GPAL:G 0 P 0 0 0 0 Past Encounters Encounter ID Performer Location Encounter Start Date Encounter Closed Date Diagnosis/Indication Diagnosis SNOMED-CT Code Diagnosis ICD10 Code Diagnosis IMO Codes Diagnosis Note [id number] Shana Valdovinos, OTR/L,CHT [facility] [address] [place] [address] 11/27/2023 14:45:10 11/27/2023 15:02:01 Postoperative care 721084793 Z48.89 The surgical wounds are inspected and [...] office visit was complete at 10 minutes. [id number] OSWALDO Bowles [address] [place] [address] 05/06/2024 08:54:31 05/29/2024 11:31:11 Pain of right elbow joint 5513045285 3049461 M25.521 Lateral epicondylitis 20 2714003 M77.11 [id number] OSW[facility] [place] [address] [place] [address] 09/26/2024 09:47:07 10/11/2024 16:10:20 Injury of right knee 3631766128 6555596 S89.91XA [id number] MD ROLAND Quinonez [address] [place] [address] 12/11/2024 10:33:56 12/13/2024 12:39:26 Triggering of digit 670323111 M65.30 [id number] Health Concerns Section Related Observation LastModified by Organization Detai ls LastModified Time None Recorded Concern Status LastModified by Organization Details LastModified Time None Recorded Advance Directives Directive None Recorded Payers Insurance Date Sequence Insurance Name Policy Number Policy De Leon Covered Member ID De Leon Member ID Guarantor Name 12/10/2024 1 [place] [employer] Valencia Ferrer [employer] [id number] Valencia Nabil Sylvain 12/11/2024 2 [place] [facility] Valencia Nabil Sylvain [id number] Valencia Nabil Sylvain 05/06/2024 2 [place] [facility] Valencia Nabil Sylvain [id number] Valencia Nabil [employer] Notes Date Note Type Note Provider Name [...] and suture removal. Shana Valdovinos, OTR/L,CHT [address], [place], [address], [facility] 11/27/2023 15:01:56 05/06/2024 text/html I am seeing [...] reviewed, updated and is located in the patient s chart. Examination: Alert and oriented 3. No acute distress. Nonantalgic gait.Right Elbow reveals no soft tissue swelling. The patient is tender over the lateral epicondyle. Lateral elbow pain with wrist extension, resisted wrist extension and resisted forearm supination. No Tenderness medially or over the olecranon process. Examination: Alert and oriented 3. No acute distress. medial Elbow reveals no [...] and tennis elbow Joie Lopez PA-C [address] [facility] [address], [place], [address], [facility] 05/06/2024 10:07:29 12/11/2024 text/html ROS as noted in the HPI Patient is a 68-year-old female well-known to me having undergone multiple trigger finger release surgeries most recent surgery in October 2023 for the left hand trigger finger. Here today with new left trigger thumb, started a few months ago. Shruti Huerta MD [address] [facility] [address], [place], [address], [facility] 12/11/2024 12:20:44 OBGyn Episode No OBEpisode recorded.
--- OUTSIDE RECORDS SUMMARY | 2025-07-10 22:10 | XMS_ITS | Clinical Summary ---
Author Organization [facility] Address [address] [place] [address] Phone Care Team Providers Care Weight Recorder Name Role Phone Erica Esparza MD Primary Care Provider [phone] Allergies Active Allergy Reactions Criticality Noted Date [...] EST - 06/27/2025 6:49 PM EST Emergency [facility] Emergency [address] [place] [address] Maki Moya MD Rhinovirus infection (Primary Dx); Enterovirus infection; Multifocal pneumonia Discharge Disposition: Home or Self Care 06/25/2025 6:46 PM EST - 06/25/2025 11:49 PM EST Emergency [facility] Emergency [address] [place] [address] Layne Altman MD Mogul, Ashley, MD Multifocal pneumonia (Primary Dx); Fever, unspecified fever cause; Other fatigue; Decreased appetite; Rhinovirus Discharge Disposition: Home or Self Care from Last 3 Months Surgical History Surgery Date Site/Laterality Comments GASTRIC BYPASS 2004 PROCEDURE: HI GASTRIC RSTCV W/BYP W/SM INT RCNSTJ LIMIT ABSRPJ HYSTERECTOMY 1979 PROCEDURE: HISTORICAL HYSTERECTOMY BACK SURGERY 2001 PROCEDURE: HISTORICAL BACK SURGERY; COMMENT: SPINAL FUSION CHOLECYSTECTOMY PROCEDURE: HI CHOLECYSTECTOMY JOINT REPLACEMENT Bilateral hip CERVICAL FUSION [...] this topic Medical Devices Implanted Type Area Feed Research Aide Device Identifier Shelf Expiration Date Model / [...] D-dimer, quantitative (06/27/2025 5:05 PM EST) Pathologist [facility] [place] D-Dimer, Quant (D-DU) <150 <=230 ng/mL DDU LAB COAGULATION METHOD 06/27/2025 5:48 PM EST [facility] Blood Venous blood specimen / Unknown Venipuncture / Unknown 06/27/2025 5:05 PM EST 06/27/2025 5:29 PM EST Narrative [facility] - 06/27/2025 5:48 PM EST D-Dimer <230 ng/mL (D-Dimer units) is the threshold for exclusion of DVT/PE. D-Dimer may be elevated in: Critically ill, severely infected, trauma patients, DIC, acute CVA, acute CO, unstable angina, AF, old age, , and smoking. D-Dimer may be decreased with: Initiation of heparin therapy and oral anticoagulants. Maki Moya MD LAB BLOOD ORDERABLES Final Res ult [facility] [address] [place] [address], * Troponin I high sensitivity (06/27/2025 3:01 PM EST) Only the most recent of3 resultswithin the time period is included. Pathologist [facility] High Sensitivity Troponin I <3 <=34 ng/L 06/27/2025 4:03 PM EST [facility] Blood Venous blood specimen / Unknown Venipuncture / Unknown 06/27/2025 3:01 PM EST 06/27/2025 3:28 PM EST Phil GUY LAB BLOOD ORDERABLES Final Result [facility] [address] [place] [address], * Procalcitonin (06/27/2025 3:01 PM EST) Pathologist [facility] Procalcitonin 0.04 <=0.05 ng/mL 06/27/2025 4:12 PM EST [facility] Blood Venous blood specimen / Unknown Venipuncture / Unknown 06/27/2025 3:01 PM EST 06/27/2025 3:28 PM EST Narrative [facility] - 06/27/2025 4:12 PM EST [...] Phil GUY LAB BLOOD ORDERABLES Final Result [facility] [address] [place] [address], * CBC auto differential (06/27/2025 3:01 PM EST) Only the most recent of2 resultswithin the time period is included. Pathologist [facility] WBC 5.5 4.8 - 10.8 K/mcL LAB HEMETOLOGY METHOD 06/27/2025 3:40 PM [facility] RBC 4.80 3.80 - 4.80 M/mcL LAB HEMETOLOGY METHOD 06/27/2025 3:40 PM [facility] Hemoglobin 13.2 11.5 - 16.0 g/dL LAB HEMETOLOGY METHOD 06/27/2025 3:40 PM [facility] Hematocrit 40.7 35.0 - 47.0 % LAB HEMETOLOGY METHOD 06/27/2025 3:40 PM [facility] MCV 84.1 79.0 - 98.0 FL LAB HEMETOLOGY METHOD 06/27/2025 3:40 PM [facility] MCH 27.3 27.0 - 32.0 pcg LAB HEMETOLOGY METHOD 06/27/2025 3:40 PM [facility] MCHC 32.4 32.0 - 37.0 g/dL LAB HEMETOLOGY METHOD 06/27/2025 3:40 PM [facility] RDW 14.6 11.0 - 15.0 % LAB HEMETOLOGY METHOD 06/27/2025 3:40 PM [facility] Platelets 243 130 - 400 K/mcL LAB HEMETOLOGY METHOD 06/27/2025 3:40 PM [facility] MPV 8.9 7.0 - 11.0 FL LAB HEMETOLOGY METHOD 06/27/2025 3:40 PM [facility] NRBC 0.0 <1.0 % LAB HEMETOLOGY METHOD 06/27/2025 3:40 PM [facility] NRBC Absolute 0.00 <0.10 K/mcL LAB HEMETOLOGY METHOD 06/27/2025 3:40 PM [facility] Neutrophils Relative 59.2 % LAB HEMETOLOGY METHOD 06/27/2025 3:40 PM [facility] Lymphocytes Relative 28.1 % LAB HEMETOLOGY METHOD 06/27/2025 3:40 PM EST [facility] Monocytes Relative 8.0 % LAB HEMETOLOGY METHOD 06/27/2025 3:40 PM [facility] Eosinophils Relative 3.3 % LAB HEMETOLOGY METHOD 06/27/2025 3:40 PM [facility] Basophils Relative 0.9 % LAB HEMETOLOGY METHOD 06/27/2025 3:40 PM [facility] Immature Granulocytes Relative 0.5 % LAB HEMETOLOGY METHOD 06/27/2025 3:40 PM [facility] Neutrophils Absolute 3.27 1.50 - 7.00 K/mcL LAB HEMETOLOGY METHOD 06/27/2025 3:40 PM [facility] Lymphocytes Absolute 1.55 1.00 - 5.00 K/mcL LAB HEMETOLOGY METHOD 06/27/2025 3:40 PM [facility] Monocytes Absolute 0.44 0.20 - 1.00 K/mcL LAB HEMETOLOGY METHOD 06/27/2025 3:40 PM [facility] Eosinophils Absolute 0.18 0.00 - 0.50 K/mcL LAB HEMETOLOGY METHOD 06/27/2025 3:40 PM [facility] Basophils Absolute 0.05 0.00 - 0.20 K/mcL LAB HEMETOLOGY METHOD 06/27/2025 3:40 PM [facility] Immature Granulocytes Absolute 0.03 0.00 - 0.03 K/mcL LAB HEMETOLOGY METHOD 06/27/2025 3:40 PM [facility] Blood Venous blood specimen / Unknown Venipuncture / Unknown 06/27/2025 3:01 PM EST 06/27/2025 3:29 PM EST Adams Liu MD LAB BLOOD ORDERABLES Final Resul t [facility] [address] [place] [address], * B-type natriuretic peptide (06/27/2025 3:01 PM EST) Only the most recent of2 resultswithin the time period is included. Pathologist [facility] BNP 49 <=100 pcg/mL 06/27/2025 4:04 PM [facility] Blood Venous blood specimen / Unknown Venipuncture / Unknown 06/27/2025 3:01 PM EST 06/27/2025 3:28 PM EST Narrative [facility] - 06/27/2025 4:04 PM EST Over the counter supplements containing high doses of biotin may interfere with this assay. If interference is suspected, patients shoud be retested after refraining from biotin supplements for 72 hours. Phil GUY LAB BLOOD ORDERABLES Final Result Performing Organization Address [facility]/ZIP Co de Phone Number [facility] [address] [place] [address], * (ABNORMAL) Basic metabolic panel (06/27/2025 3:01 PM EST) [facility] Sodium 140 133 - 145 mmol/L 06/27/2025 4:04 PM [facility] Potassium 4.3 3.5 - 5.5 mmol/L 06/27/2025 4:04 PM [facility] Chloride 99 96 - 110 mmol/L 06/27/2025 4:04 PM [facility] CO2 31 21 - 32 mmol/L 06/27/2025 4:04 PM [facility] Anion Gap 10 3 - 11 06/27/2025 4:04 PM [facility] Glucose 103(H) 70 - 100 mg/dL 06/27/2025 4:04 PM [facility] BUN 9 5 - 25 mg/dL 06/27/2025 4:04 PM [facility] Creatinine 1.00 0.50 - 1.10 mg/dL 06/27/2025 4:04 PM [facility] eGFR 61 >=60 mL/min/1. 73m2 06/27/2025 4:04 PM [facility] Comment:Calculation based on the Chronic Kidney Disease Epidemiology Collaboration (CKD-EPI) equation refit without adjustment for race. BUN/Creatinine Ratio 9.0 06/27/2025 4:04 PM [facility] Calcium 8.7 8.5 - 10.5 mg/dL 06/27/2025 4:04 PM [facility] Blood Venous blood specimen / Unknown Venipuncture / Unknown 06/27/2025 3:01 PM EST 06/27/2025 3:28 PM EST us Adams Liu MD LAB BLOOD ORDERABLES Final Resul t [facility] [address] [place] [address], [place] [phone] * (ABNORMAL) Respiratory virus panel molecular study (06/27/2025 2:58 PM EST) Only the most recent of2 resultswithin the time period is included. Adenovirus Detection by PCR Not Detected Not Detected LAB MICROBIOLOGY METHOD 06/27/2025 4:30 PM [facility] Influenza A PCR Not Detected Not Detected LAB MICROBIOLOGY METHOD 06/27/2025 4:30 PM [facility] Influenza B PCR Not Detected Not Detected LAB MICROBIOLOGY METHOD 06/27/2025 4:30 PM [facility] Coronavirus 229E Not Detected Not Detected LAB MICROBIOLOGY METHOD 06/27/2025 4:30 PM [facility] Coronavirus HKU1 Not Detected Not Detected LAB MICROBIOLOGY METHOD 06/27/2025 4:30 PM [facility] Coronavirus OC43 Not Detected Not Detected LAB MICROBIOLOGY METHOD 06/27/2025 4:30 PM [facility] Coronavirus NL63 Not Detected Not Detected LAB MICROBIOLOGY METHOD 06/27/2025 4:30 PM [facility] Parainfluenza Virus 1 Not Detected Not Detected LAB MICROBIOLOGY METHOD 06/27/2025 4:30 PM [facility] Parainfluenza Virus 2 Not Detected Not Detected LAB MICROBIOLOGY METHOD 06/27/2025 4:30 PM [facility] Parainfluenza Virus 3 Not Detected Not Detected LAB MICROBIOLOGY METHOD 06/27/2025 4:30 PM [facility] Parainfluenza Virus 4 Not Detected Not Detected LAB MICROBIOLOGY METHOD 06/27/2025 4:30 PM [facility] RSV PCR Not Detected Not Detected LAB MICROBIOLOGY METHOD 06/27/2025 4:30 PM [facility] Human Metapneumovirus A and B Not Detected Not Detected LAB MICROBIOLOGY METHOD 06/27/2025 4:30 PM [facility] Rhinovirus/Entero virus Detected(A ) Not Detected LAB MICROBIOLOGY METHOD 06/27/2025 4:30 PM [facility] Bordetella pertussis Not Detected Not Detected LAB MICROBIOLOGY METHOD 06/27/2025 4:30 PM [facility] Bordetella parapertussis Not Detected Not Detected LAB MICROBIOLOGY METHOD 06/27/2025 4:30 PM [facility] Mycoplasma pneumo by PCR Not Detected Not Detected LAB MICROBIOLOGY METHOD 06/27/2025 4:30 PM [facility] Chlamydia pneumoniae Not Detected Not Detected LAB MICROBIOLOGY METHOD 06/27/2025 4:30 PM [facility] SARS COV-2 Not Detected Not Detected LAB MICROBIOLOGY METHOD 06/27/2025 4:30 PM EST [facility] Swab Nasopharyngeal structure / Unknown Non-blood Collection / Unknown 06/27/2025 2:58 PM EST 06/27/2025 3:30 PM EST Narrative [facility] - 06/27/2025 4:30 PM EST Testing was performed using the Omnisens Respiratory Pathogen PCR Assay. All results must [...] GENERAL ORDERABLES Final Result Performing Organization Address City/[facility]/ZIP Co de Phone Number [facility] [address] [place] [address], [place] [phone] * ECG 12 lead (06/27/2025 2:51 PM EST) Only the most recent of2 resultswithin the time period is included. Ventricular Rate ECG 68 BPM GEMUSE Atrial Rate 68 BPM GEMUSE P-R Interval 130 ms GEMUSE QRS Duration 76 ms GEMUSE Q-T Interval 418 ms GEMUSE QTc 444 ms GEMUSE P Wave [place] 52 degrees GEMUSE R [place] 11 degrees GEMUSE T [place] 45 degrees GEMUSE ECG Interpretation Normal sinus rhythm Normal ECG When compared with ECG of 25-JUN-2025 16:59, No significant change was found Confirmed by MARISOL GUILLAUME ([id number]) on 06/28/2025 10:05:50 AM GEMUSE 06/27/2025 2:51 PM EST 06/28/2025 10:05 AM EST Adams Liu MD ECG ORDERABLES Final Result Performing Organization Address [facility]/ZIP Co de Phone Number GEMUSE * XR Chest 2 Views (06/27/2025 2:46 PM EST) Anatomical Region Laterality Modality Body Radiographic Cheryl ging 06/27/2025 3:14 PM EST Impressions 06/27/2025 3:17 PM EST Impression: Subtle groundglass infiltrates in the right lung showing no apparent worsening since the 06/25/25 CT. Telejudi GUY ([id number]) -------- FINAL REPORT -------- Dictated By: Manisha Wallis Dictated Date: 06/27/2025 15:14 ET Assigned Physician: Manisha Wallis Reviewed and Electronically Signed By: Manisha Wallis Signed Date: 06/27/2025 15:17 ET Workstation ID: [id number] Transcribed By: Self Edit Transcribed Date: 06/27/2025 [...] apparentworsening since the 06/25/25 CT. Telejudi GUY ([id number]) -------- FINAL REPORT -------- Dictated By: Manisha Wallis Dictated Date: 06/27/2025 15:14 ET Assigned Physician: Manisha Wallis Reviewed and Electronically Signed By: Manisha Wallis Signed Date: 06/27/2025 15:17 ET Workstation ID: [id number] Transcribed By: Self Edit Transcribed Date: 06/27/2025 15:14 ET us Phil GUY IMG XR PROCEDURES Final Res ult * ECG-Annotated (06/27/2025) us Provider Onbase MD ECG ORDERABLES Final Result * Blood Culture, Peripheral Draw #2 (06/25/2025 10:53 PM EST) Only the most recent of2 resultswithin the time period is included. Culture, Blood No growth at 5 days 07/01/2025 12:01 AM EST [facility] Blood Venous blood specimen / Unknown Venipuncture / Unknown 06/25/2025 10:53 PM EST 06/25/2025 11:00 PM EST Josefa Matute MD LAB MICROBIOLOGY - GENERAL ORDER CONNER Final Result [facility] [address] [place] [address], [place] [phone] * CT Chest w Contrast (06/25/2025 8:51 [...] with Reflex (06/25/2025 8:40 PM EST) Pathologist [facility] LACTIC ACID 1.0 0.4 - 2.0 mmol/L 06/25/2025 9:21 PM EST [facility] Blood Venous blood specimen / Unknown Venipuncture / Unknown 06/25/2025 8:40 PM EST 06/25/2025 8:52 PM EST us Layne Altman MD LAB BLOOD ORDERABLES Final Resul t Performing Organization Address City/[facility]/ZIP Co de Phone Number [facility] [address] [place] [address], [place] [phone] * Magnesium (06/25/2025 6:39 PM EST) Pathologist [facility] Magnesium 2.1 1.9 - 2.6 mg/dL 06/25/2025 7:29 PM EST [facility] Blood Venous blood specimen / Unknown Venipuncture / Unknown 06/25/2025 6:39 PM EST 06/25/2025 6:49 PM EST us Layne Altman MD LAB BLOOD ORDERABLES Final Resul t Performing Organization Address City/[facility]/ZIP Co de Phone Number [facility] [address] [place] [address], [place] [phone] * Lipase (06/25/2025 6:39 PM EST) Lipase 20 12 - 53 unit/L 06/25/2025 7:29 PM [facility] Blood Venous blood specimen / Unknown Venipuncture / Unknown 06/25/2025 6:39 PM EST 06/25/2025 6:49 PM EST us Layne Altman MD LAB BLOOD ORDERABLES Final Resul t [facility] [address] [place] [address], * (ABNORMAL) Comprehensive metabolic panel (06/25/2025 6:39 PM EST) Sodium 134 133 - 145 mmol/L 06/25/2025 7:29 PM [facility] Potassium 4.3 3.5 - 5.5 mmol/L 06/25/2025 7:29 PM [facility] Chloride 95(L) 96 - 110 mmol/L 06/25/2025 7:29 PM [facility] CO2 29 21 - 32 mmol/L 06/25/2025 7:29 PM [facility] Anion Gap 10 3 - 11 06/25/2025 7:29 PM [facility] Glucose 218(H) 70 - 100 mg/dL 06/25/2025 7:29 PM [facility] BUN 14 5 - 25 mg/dL 06/25/2025 7:29 PM [facility] Creatinine 1.03 0.50 - 1.10 mg/dL 06/25/2025 7:29 PM [facility] eGFR 59(L) >=60 mL/min/1. 73m2 06/25/2025 7:29 PM [facility] Comment:Calculation based on the Chronic Kidney Disease Epidemiology Collaboration (CKD-EPI) equation refit without adjustment for race. BUN/Creatinine Ratio 13.6 06/25/2025 7:29 PM [facility] Calcium 9.2 8.5 - 10.5 mg/dL 06/25/2025 7:29 PM [facility] AST (SGOT) 23 10 - 42 unit/L 06/25/2025 7:29 PM [facility] ALT (SGPT) 26 10 - 60 unit/L 06/25/2025 7:29 PM [facility] Alkaline Phosphatase 90 42 - 121 unit/L 06/25/2025 7:29 PM [facility] Total Protein 6.6 6.0 - 8.0 g/dL 06/25/2025 7:29 PM [facility] Albumin 4.2 3.2 - 5.0 g/dL 06/25/2025 7:29 PM [facility] Total Bilirubin 0.6 0.0 - 1.4 mg/dL 06/25/2025 7:29 PM [facility] Blood Venous blood specimen / Unknown Venipuncture / Unknown 06/25/2025 6:39 PM EST 06/25/2025 6:49 PM EST Layne Altman MD LAB BLOOD ORDERABLES Final Resul t [facility] [address] [place] [address], * External Colonoscopy Report (03/11/2025 9:10 AM EDT) Anatomical Region Laterality Modality Endoscopy Historical Provider GI~PROCEDURE ORDERABLES F inal Result * NORA SCREENING DIGITAL (12/01/2022 11:31 AM EDT) Anatomical Region Laterality Modality Mammography 12/01/2022 8:54 AM EDT Narrative 12/01/2022 11:31 AM EDT [facility] Diagnostic Imaging Department [address] [place] [address] Patient: SABAS MART /Age/Sex: 1955 - 66 - F Unit#: [id number] Location/Status: [facility] CLI Mnemonic/Ordering Site: [facility] Ordering Physician: ERICA ESPARZA MD Noar Screening Digital - 12/01/22920 EXAM: [facility] Screening Digital EXAM DATE AND TIME: 12/01/2022 9:21 AM HISTORY: Screening. Personal history of colon carcinoma. Reduction mammoplasty in 1998. COMPARISON: 08/31/21, 03/18/19, 08/09/18, 05/08/17, 04/20/15 TECHNIQUE: CC and MLO views of both breasts were obtained using full field digital mammography. Bilateral digital breast tomosynthesis was performed in the MLO projection. Computer aided detection with Techtium 7.2-H and YouMail 3D 3.1 was employed. TISSUE DENSITY: b. [...] Routine screening mammogram BILATERAL in 1 year. [id number], 94864 3342F, 8026F Dictating Physician: MANISHA WALLIS MD Electronically Signed by: MANISHA WALLIS MD Dic Date/Time: 12/01/22 1129 Sign date/Time: 12/01/22 1131 Procedure Note Manisha Wallis MD - 09/01/2023 [facility] Diagnostic Imaging Department [address] [place], [place] [address] Patient: BARRONSABAS M /Age/Sex: 1955 - 66 - F Unit#: [id number] Location/Status: [facility] Mnemonic/Ordering Site: [facility] Ordering Physician: ERICA ESPARZA MD [facility] Screening Digital - 12/01/22 - 920 EXAM: [facility] Screening Digital EXAM DATE AND TIME: 12/01/2022 9:21 AM HISTORY: Screening. Personal history of colon carcinoma. Reductionmammoplasty in 1998. COMPARISON: 08/31/21, 03/18/19, 08/09/18, 05/08/17, 04/20/15 TECHNIQUE: CC and MLO views of both breasts were obtained using fullfield digital mammography. Bilateral digital breast tomosynthesis was performedin the MLO projection. Computer aided detection with iCAD PowerLook 7.2-H andiCAD Escapeer.com AI 3D 3.1 was employed. TISSUE DENSITY: [...] Routine screening mammogram BILATERAL in 1 year. 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
--- OUTSIDE RECORDS SUMMARY | 2025-07-10 22:10 | XMS_ITS | Data Portability ---
Author Organization [facility] Address [address] [place] [address] Care Team Providers Care Salesperson Yard Goods Name Role Phone HILDA CRUZ, TRISTEN Primary Care Provider Assessment Encounter Date Assessment [...] to 2 weeks she can certainly take [id number] pain medication for symptomatic relief as well [...] 3 view 023 10/13/19 [email or web address] [facility], [address], [facility] [address], [place], [address], 3 07:57:44 Medication Orders None record ed. [...] and Address Organization Details Recorded Time Problem 05018605 Active No known active problems Not Available [facility] 5 00:28:42 Strain of muscle of left groin region [id number] 73808 Active 2022 ISIAH FERREIRA PA-C [address] [facility] [address], [facility] [place], [address] , [place] [facility] 3 15:19:32 Problem Notes None recorded. Procedures Surgical History Date Name Laterality Status Provider Name and Address Organization Details Recorded Time 04/08/20 13 arthroplasty of right hip joint completed Briseida Gleason [facility] 10/12/2022 14:38:55 05/02/20 11 total replacement of left hip joint completed Brisedia Gleason [facility] 10/12/2022 14:40:10 lumbar laminectomy and excision of intradural spinal lesion completed Briseida Gleason [facility] 10/12/2022 14:40:39 primary fusion of cervical spine completed Briseida Gleason [facility] 10/12/2022 14:40:52 bypass of stomach completed Briseida Gleason [facility] 10/12/2022 14:41:25 hysterectomy completed Briseida Gleason [facility] 10/12/2022 14:41:37 cholecystectomy completed Briseida Gleason [facility] 10/12/2022 14:41:56 Imaging Results None recorded. Procedure Notes None recorded. Medical Equipment None Reported. Allergies Allergen ID Allergen Name Allergen Category Reaction Reaction Severity Criticality Documentation Date Start Date Code Code System Note Provider Name and Address Organization Details Recorded Time 871432 meperidin e medicatio n Not available Not available Not available 04/22/20252017 6754 RxNorm Not Available [facility] 5 01:28:36 018177 duloxetin e hydrochlo ride medicatio n Not available Not available Not available 04/22/20252017 17291 0 RxNorm Not Available [facility] 5 01:28:37 803853 lisinopri l medicatio n Not available Not available Not available 04/22/20252019 63938 RxNorm Not Available [facility] 5 01:28:37 235 Demerol medicatio n Not available Not available Not available 10/12/2022 59255 1 RxNorm Briseida Gleason null, [facility] 3 14:34:56 236 tetracycl ine medicatio n Not available Not available Not available 10/12/2022 52947 RxNorm Briseida Gleason null, [place] [facility] 3 14:35:04 237 Cymbalta medicatio n Not available Not available Not available 10/12/2022 17033 4 RxNorm Briseida Gleason null, [facility] 3 14:35:12 Medications Name Sig Start [...] Updated DateTime 10/12/2022 160.02 cm 30.1 kg/m2 86122.[address] [facility] 10/12/2022 14:36:07 Social History None recorded. [...] IMO Codes Diagnosis Note [address] GUY [address] [place] [address] 10/12/2022 14:25:34 10/12/2022 15:12:11 Pain of left hip joint [id number] 71914 M25.552 Strain of muscle of left groin region 4364897917 8105311 S76.012A Health Concerns Section Related Observation LastModified by Organization Detai ls LastModified Time None Recorded Concern Status LastModified by Organization Details LastModified Time None Recorded Advance Directives Directive None Recorded Payers Insurance Date Sequence Insurance Name Policy Number Policy De Leon Covered Member ID De Leon Member ID Guarantor Name 10/12/2022 1 MEDICARE B[place]: [place] MEDICARE - [facility] Valencia Narayan [id number] Valencia Narayan 12/09/2022 2 [place] [facility] Valencia Narayan [id number] Valencia Narayan 10/17/2022 MED[place] B-[place] [employer] Valencia Narayan [id number] Valencia Narayan Notes Date Note Type Note [...] Dr. [place] on 05/02/2011 ISIAH FERREIRA PA-C [address] [place] [address], [address], [place] [facility] 10/12/2022 15:20:12 OBGyn Episode No OBEpisode recorded.
--- OUTSIDE RECORDS SUMMARY | 2025-07-10 22:10 | XMS_ITS | Clinical Summary ---
Author Organization [facility] Prior to 12/28/[address] [place] [id number] Care Team Providers Care Safety And Health Manager Name Role Phone Betsy Clarke NP [...] age to complete this topic Care Teams Safety And Health Manager Relationship Specialty Start Date End Date Betsy Clarke NP [address] [place] [address] PCP - General Gerontology 10/10/19
== END 2025-07-09 14:32 | disposition home or self-care (01) ==
LOC: HO.HOSX 14:31
PROVIDERS: Visit Provider Orthopaedic Surgery
DX: M25.311 Other instability, right shoulder (principal)
CPT/HCPCS: 73030

== ENCOUNTER → 2025-07-09 14:39 | Outpatient (BNV) | payer MEDICARE, MEDICAID, SELFPAY | PROVIDERS: Visit Provider Radiology Diagnostic Ultrasound | DX: M19.011 Primary osteoarthritis, right shoulder (principal) | CPT/HCPCS: 73030 ==